=== PATIENT | female | born 1955 | race Hispanic/Latino ===

== ENCOUNTER 2018-01-09 17:03 | Inpatient (IN) | payer MEDICAID ==
[2018-01-09 18:11] LABS: BASO # 0.03 K/mm3 (0.0-2.0); BASO % 0.2 % (0.0-3.0); EOS # 0.1 (0.0-0.7); EOS % 0.4 % (1.5-5.0); GRAN # 9.95 (1.4-6.5); GRAN % 73.3 % (50.0-68.0); HEMOGLOBIN 13.7 g/dL (12.0-16.0); LYMPH # 2.2 (1.2-3.4); LYMPH % 16.3 % (22.0-35.0); MEAN CELL VOLUME 90.2 fl (80.0-105.0); MEAN CORPUSCULAR HEMOGLOBIN 29.7 pg (25.0-35.0); MEAN CORPUSCULAR HGB CONC 32.9 g/dl (31.0-37.0); MEAN PLATELET VOLUME 10.9 fl (7.0-11.0); MONO # 1.3 (0.1-0.6); MONO % 9.8 % (1.0-6.0); RBC 4.61 10^6/uL (3.5-6.1); RED CELL DISTRIBUTION WIDTH 14.5 % (11.5-14.5); WHITE BLOOD COUNT 13.6 10^3/ul (4.5-11.0)
[2018-01-09 18:23] LABS: INR 1.44; PARTIAL THROMBOPLASTIN TIME 24.1 Seconds (25.1-36.5); PROTHROMBIN TIME 16.5 SECONDS (9.4-12.5)
[2018-01-09 18:27] LABS: AMYLASE 67 U/L (35-125); CALCIUM 8.9 mg/dL (8.4-10.5); GFR NON-AFRICAN AMERICAN > 60; LIPASE 25 U/L (23-300)
--- NOTE | 2018-01-09 18:28 | ED PDOC ---
Arrival/HPI - General Chief Complaint: Abdominal Pain Time Seen by Provider: 01/09/18 17:20 Historian: Patient - History of Present Illness Narrative History of Present Illness (Text): 01/09/18 18:24 62yo female with pmhx of Diabetes, COPD, who present with complaint of diarrhea and left flank/LLQ abdominal pain x 5days. States the pain became worse 3days ago. Reports 5epsiodes of nonbloody diarrhea today. Denies nausea, vomiting, fever, chills, urinary symptoms, chest pain, sick contact, travel, any other complaint. Past Medical History - Provider Review Nursing Documentation Reviewed: Yes - Infectious Disease Hx of Infectious Diseases: None - Tetanus Immunization Tetanus Immunization: Unknown - Reproductive Menopause: Yes - Cardiac Hx DE: Yes - Pulmonary Hx Chronic Obstructive Pulmonary Disease (COPD): Yes - Neurological Hx Neurological Disorder: Yes Hx Paralysis: No Other/Comment: Neuropathy - HEENT Hx HEENT Disorder: No - Renal Hx Renal Disorder: No - Endocrine/Metabolic Hx Diabetes Mellitus Type 2: Yes - Hematological/Oncological Hx Blood Transfusions: No - Integumentary Hx Dermatological Disorder: No - Musculoskeletal/Rheumatological Hx Musculoskeletal Disorders: No - Gastrointestinal Hx Gastrointestinal Disorders: No - Genitourinary/Gynecological Hx Genitourinary Disorders: No - Psychiatric Hx Emotional Abuse: No Hx Physical Abuse: No Hx Substance Use: Yes (HEROIN/COCAINE(SNORTED) DENIES IVDA; XANAX) - Surgical History Hx Cardiac Catheterization: Yes - Anesthesia Hx Anesthesia: No Hx Anesthesia Reactions: No Hx Malignant Hyperthermia: No - Suicidal Assessment Feels Threatened In Home Enviroment: No Family/Social History - Physician Review Nursing Documentation Reviewed: Yes Family/Social History: Unknown Family HX Smoking Status: Former Smoker Hx Alcohol Use: No Hx Substance Use: Yes (HEROIN/COCAINE(SNORTED) DENIES IVDA; XANAX) Hx Substance Use Treatment: No Allergies/Home Meds Allergies/Adverse Reactions: Allergies iodine Allergy (Verified 01/09/18 17:15) ANAPHYLAXIS Penicillins Allergy (Verified 01/09/18 17:15) ANAPHYLAXIS Home Medications: Home Meds Medication Instructions Recorded Confirmed Tiotropium [place] Inhaler 1 inhaler INH DAILY 04/27/14 01/09/18 [Spiriva Inhalation Handihaler Device] Albuterol Sulfate [Ventolin Hfa] 1 puff IH BID PRN 09/15/17 01/09/18 Fluticasone/Salmeterol [Advair 1 each IH DAILY 09/15/17 01/09/18 250-50 Diskus] Gabapentin [Neurontin] 300 mg PO BID 01/09/18 01/09/18 Ibuprofen [Motrin Tab] 800 mg PO TID 01/09/18 01/09/18 Metformin HCl [Glucophage] 500 mg PO DAILY 01/09/18 01/09/18 Review of Systems - Physician Review All systems were reviewed & negative as marked: Yes - Review of Systems Constitutional: Normal Eyes: Normal ENT: Normal Respiratory: Normal Cardiovascular: Normal Gastrointestinal: Abdominal Pain, Diarrhea. absent: Constipation, Nausea, Vomiting, Hematochezia, Hematemesis Genitourinary Female: Normal Musculoskeletal: Normal Skin: Normal Neurological: Normal Endocrine: Normal Hemo/Lymphatic: Normal Psychiatric: Normal Physical Exam Vital Signs Reviewed: Yes Vital Signs Temp Pulse Resp BP Pulse Ox 01/09/18 19:04 98.6 F 80 18 139/70 95 01/09/18 17:15 97.3 F L 89 18 128/80 91 L Temperature: Afebrile Blood Pressure: Normal Pulse: Regular Respiratory Rate: Normal Appearance: Positive for: Well-Appearing, Non-Toxic, Comfortable Pain Distress: None Mental Status: Positive for: Alert and Oriented X 3 Finger Stick Blood Glucose: 126 - Systems Exam Head: Present: Atraumatic, Normocephalic Pupils: Present: PERRL Extroacular Muscles: Present: EOMI Conjunctiva: Present: Normal Mouth: Present: Moist Mucous Membranes Neck: Present: Normal Range of Motion Respiratory/Chest: Present: Clear to Auscultation, Good Air Exchange. No: Respiratory Distress, Accessory Muscle Use Cardiovascular: Present: Regular Rate and Rhythm, Normal S1, S2. No: Murmurs Abdomen: Present: Tenderness (LLQ tenderness), Other (Soft). No: Distention, Peritoneal Signs, Rebound, Guarding, McBurney's Point Tender, Rovsing's Sign Present Back: Present: Normal Inspection Upper Extremity: Present: Normal Inspection. No: Cyanosis, Edema Lower Extremity: Present: Normal Inspection. No: Edema Neurological: Present: GCS=15, CN II-XII Intact, Speech Normal Skin: Present: Warm, Dry, Normal Color. No: Rashes Psychiatric: Present: Alert, Oriented x 3, Normal Insight, Normal Concentration Medical Decision Making ED Course and Treatment: 01/09/18 19:47 62yo female in ED for LLQ and diarrhea x 5days. Labs ordered Abdominal/Pelvis CT I L NS, Pepcid ordered EKG EKG NSR @81bpm Lab was reviewed and leukocytosis was noted. Lactate was wnl Abdominal/Pelvic CT ABDOMEN and PELVIS: Intraperitoneal space: Unremarkable. No free air. No significant free fluid. Bones/joints: Degenerative changes in the spine. No acute fracture. No acute subluxation. Soft tissues: Very small fat containing umbilical hernia. Vasculature: Aortoiliac calcified plaque. No abdominal aortic aneurysm. Lymph nodes: A few sub-centimeter nonenlarged nonspecific mesenteric lymph nodes. IMPRESSION: Diffuse colitis. Infectious, inflammatory and ischemic etiologies for colitis should be considered. Gallstones Flagyl and azactem was ordered. Pt is allergic to penicillin Stool culture for C. diff ordered Pt will be admitted. Result and plan was DW the pt and she agreed. Case was DW Dr. Estrada and he accepted pt for admission. - Lab Interpretations Lab Results: 01/09/18 17:20 01/09/18 17:20 Lab Results 01/09/18 18:26: pO2 27 L, VBG pH 7.37, VBG pCO2 52.0, VBG HCO3 30.1 H, VBG Total CO2 31.7 H, VBG O2 Sat (Calc) 51.0, VBG Base Excess 3.6 H, VBG Potassium 4.2, Glucose 118 H, Lactate 1.1, FiO2 21.0, Sodium 136.0, Chloride 99.0, Venous Blood Potassium 4.2 01/09/18 17:28: POC Glucose (mg/dL) 123 H 01/09/18 17:20: Sodium 141, Potassium 4.0, Chloride 98, Carbon Dioxide 28, Anion Gap 18, BUN 16, Creatinine 0.7, Est GFR ( Amer) > 60, Est GFR (Non- Af Amer) > 60, Random Glucose 119 H, Calcium 8.9, Total Bilirubin 0.8, AST 27, ALT 20, Alkaline Phosphatase 68, Lactate Dehydrogenase 508, Total Creatine Kinase 111, Troponin I < 0.01, Total Protein 8.1, Albumin 4.0, Globulin 4.1, Albumin/Globulin Ratio 1.0 L, Amylase 67, Lipase 25 01/09/18 17:20: PT 16.5 H, INR 1.44, APTT 24.1 L 01/09/18 17:20: WBC 13.6 H D, RBC 4.61, Hgb 13.7, Hct 41.6, MCV 90.2, MCH 29.7, MCHC 32.9, RDW 14.5, Plt Count 240, MPV 10.9, Gran % 73.3 H, Lymph % (Auto) 16.3 L, Marion % (Auto) 9.8 H, Eos % (Auto) 0.4 L, Baso % (Auto) 0.2, Gran # 9.95 H, Lymph # (Auto) 2.2, Marion # (Auto) 1.3 H, Eos # (Auto) 0.1, Baso # (Auto) 0.03 - RAD Interpretation Radiology Orders: 01/09/18 17:22 ABD & PELVIS W/O PO OR IV CONT [CT] Stat 01/09/18 19:34 CHEST PORTABLE [RAD] Stat - Medication Orders Current Medication Orders: Metronidazole (Flagyl) 500 mg in 100 mls @ 100 mls/hr IVPB STAT STA PRN Reason: Protocol Stop: 01/09/18 20:24 Aztreonam (Azactam 1 Gm) 100 mls @ 100 mls/hr IVPB STAT STA PRN Reason: Protocol Stop: 01/09/18 20:32 Discontinued Medications Famotidine (Pepcid) 20 mg IVP STAT STA Stop: 01/09/18 17:21 Last Admin: 01/09/18 18:01 Dose: 20 mg IVP Administration Document 01/09/18 18:01 EWO (Rec: 01/09/18 18:02 [id number]) Charges for Administration # of IVP Administrations 1 Morphine Sulfate (Morphine) 4 mg IVP STAT STA Stop: 01/09/18 19:26 Disposition/Present on Arrival - Present on Arrival Any Indicators Present on Arrival: No History of DVT/PE: No History of Uncontrolled Diabetes: No Urinary Catheter: No History of Decub. Ulcer: No History Surgical Site Infection Following: None - Disposition Have Diagnosis and Disposition been Completed?: Yes Diagnosis: Colitis, Diarrhea Disposition: HOSPITALIZED Disposition Time: 19:35 Patient Plan: Admission Patient Problems: Current Active Problems Problem Status Onset Colitis Acute Diarrhea Acute Condition: STABLE Referrals: Gaurav Tobias MD [Primary Care Provider] - Follow up with primary Forms: [employer] (Macedonian)
[2018-01-09 18:38] LABS: TROPONIN I < 0.01 ng/mL
[2018-01-09 18:45] LABS: ALT/SGPT 20 U/L (7-56); AST/SGOT 27 U/L (14-36); BLOOD UREA NITROGEN 16 mg/dL (7-21)
[2018-01-09 18:53] LABS: VENOUS BLOOD GAS BASE EXCESS 3.6 mmol/L (0.0-2.0); VENOUS BLOOD GAS PO2 27 mm/Hg (30-55); VENOUS BLOOD PH 7.37 (7.32-7.43)
[2018-01-09] MEDS ORDERED: Morphine 4 mg/ml ISec IVP STA (19:25)
[2018-01-09] MEDS ORDERED: metroNIDAZOLE IV 500 mg/100 ml 500 MG/100 ML BAG IVPB STA (19:25)
[2018-01-09] MEDS ORDERED: Aztreonam 1 Gm in NS 100mL 100 ML IVPB STA (19:33)
[2018-01-09 20:18] LABS: URINE BILIRUBIN SMALL (NEGATIVE); URINE BLOOD TRACE-INTACT (NEGATIVE); URINE GLUCOSE (UA) NEGATIVE (NEGATIVE); URINE LEUKOCYTE ESTERASE NEGATIVE Leu/uL (NEGATIVE); URINE PROTEIN 30 mg/dL (<30 mg/dL); URINE UROBILINOGEN 0.2 E.U./dL (<1 E.U./dL)
[2018-01-09 20:29] LABS: URINE APPEARANCE CLEAR (CLEAR); URINE COLOR YELLOW (YELLOW)
[2018-01-09] MEDS ORDERED: Morphine 2 mg/ml ISec IVP PRN (20:58)
[2018-01-09] MEDS ORDERED: Sodium Chloride 0.9% 1,000 ML IV SCH (21:00)
[2018-01-09] MEDS ORDERED: Albuterol 0.083% Inhal Sol (2.5 mg/3 mL) UD IH PRN (21:00)
[2018-01-09] MEDS ORDERED: Dextrose 50% SYRINGE Inj (50 ml) IV PRN (21:03)
[2018-01-09] MEDS: Insulin Reg-LOW-Coverage SC SCH (21:16)
[2018-01-09] MEDS: Sodium Chloride 0.9% 1,000 ML IV SCH (21:21)
--- NOTE | 2018-01-09 21:27 | CP.PCM.HP ---
Addendum entered and electronically signed by Alex Renner DO 01/10/18 04:55 : HPI: Patient is a 62 yo female with PMH of COPD, DM, HTN, Methadone ( maintenance) neuropathy presents to ED for evaluation of abdominal pain. Patient reports her abdominal pain began on 01/05 and progressively became worse until she had to come to hospital. Patient reports no appetite secondary to abdominal pain and multiple episodes of diarrhea (5-6/day) described as light brown, loose, no melena, or blood noted. Patient also reports weakness and states it is because she is unable to eat and continues to have diarrhea. Patient states the pain is located in the left upper and lower quadrant, non- radiating, constant in nature and worsened with eating. Patient states the pain level is 8/10 currently. Patient states she had 1 prior episode of similar symptoms in 2013 after a dentist prescribed her antibiotics. Patient states she came here in the past and was treated for C. diff colitis. Patient underwent colonoscopy in (2013 or 2014) with normal results. Patient states she has been feeling lightheaded but denies fevers or chills. Original Note: <Alex Renner - Last Filed: 01/09/18 21:39> History of Present Illness - History of Present Illness History of Present Illness: PGY-1 History and Physical for Dr. Estrada's service CC: stomach pain + bad diarrhea Patient is a 62 yo female with PMH of COPD, DM, HTN, Methadone ( maintenance) neuropathy presents to ED for evaluation of abdominal pain. Patient reports her abdominal pain began on 01/05 and progressively became worse until she had to come to hospital. Patient reports no appetite secondary to abdominal pain and multiple episodes of diarrhea (5-6/day) described as light brown, loose, no melena, or blood noted. Patient also reports weakness and states it is becaPatient states the pain is located in the left upper and lower quadrant, non-radiating, constant in nature and worsened with eating. Patient states the pain level is 8/10 currently. Patient states she had 1 prior episode of similar symptoms in 2013 after a dentist prescribed her antibiotics. Patient states she came here in the past and was treated for C. diff colitis. Patient underwent colonoscopy in (2013 or 2014) with normal results. Patient states she has been feeling lightheaded but denies fevers or chills. PMH: Neuropathy, COPD, DM, HTN, Methadone (maintenance) PSH: Denies FH: Mom (Heart Problems- DM & HF) Meds: Allergies: PCN (diarrhea) & Iodine (hives, anaphylaxis) Social: Denies alcohol, tobacco, or drug use (previous IVDA) PMD: Dr. Tobias Code: Full Code Review of Systems: Pertinent Positives: abdominal pain, diarrhea, lightheadedness, weakness Pertinent Negatives: hematochezia, melena, fevers, chills, chest pain, sob, n/v , constipation, palpitations, dysuria, dizziness Present on Admission - Present on Admission Any Indicators Present on Admission: No Review of Systems - Constitutional Constitutional: absent: Chills, Fever, Headache, Weight Loss - EENT Eyes: absent: Blurred Vision, Change in Vision - Cardiovascular Cardiovascular: absent: Chest Pain, Diaphoresis, Dyspnea - Respiratory Respiratory: absent: Dyspnea, Hemoptysis - Gastrointestinal Gastrointestinal: Abdominal Pain, Bloating, Diarrhea. absent: Constipation, Hematochezia, Melena, Nausea, Vomiting - Genitourinary Genitourinary: absent: Change in Urinary Stream, Difficulty Urinating, Dysuria, Flank Pain, Hematuria - Musculoskeletal Musculoskeletal: absent: Arthralgias, Back Pain, Numbness, Tingling - Neurological Neurological: Weakness. absent: Dizziness, Headaches Past Patient History - Infectious Disease Hx of Infectious Diseases: None - Tetanus Immunizations Tetanus Immunization: Unknown - Past Social History Smoking Status: Former Smoker - CARDIAC Hx Heart Attack: Yes - PULMONARY Hx Chronic Obstructive Pulmonary Disease (COPD): Yes - NEUROLOGICAL Hx Neurological Disorder: Yes Hx Paralysis: No Other/Comment: Neuropathy - HEENT Hx HEENT Problems: No - RENAL Hx Chronic Kidney Disease: No - ENDOCRINE/METABOLIC Hx Diabetes Mellitus Type 2: Yes - HEMATOLOGICAL/ONCOLOGICAL Hx Blood Transfusions: No - INTEGUMENTARY Hx Dermatological Problems: No - MUSCULOSKELETAL/RHEUMATOLOGICAL Hx Musculoskeletal Disorders: No - GASTROINTESTINAL Hx Gastrointestinal Disorders: No - GENITOURINARY/GYNECOLOGICAL Hx Genitourinary Disorders: No - PSYCHIATRIC Hx Emotional Abuse: No Hx Physical Abuse: No Hx Substance Use: Yes (HEROIN/COCAINE(SNORTED) DENIES IVDA; XANAX) - SURGICAL HISTORY Hx Cardiac Catheterization: Yes - ANESTHESIA Hx Anesthesia: No Hx Anesthesia Reactions: No Hx Malignant Hyperthermia: No Meds Allergies/Adverse Reactions: Allergies Allergy/AdvReac Type Severity Reaction Status Date / Time iodine Allergy ANAPHYLAXIS Verified 01/09/18 17:15 Penicillins Allergy ANAPHYLAXIS Verified 01/09/18 17:15 Physical Exam - Constitutional Appears: Non-toxic, No Acute Distress - Head Exam Head Exam: NORMAL INSPECTION, NORMOCEPHALIC - Eye Exam Eye Exam: EOMI, Normal appearance. absent: Nystagmus, Scleral icterus - ENT Exam ENT Exam: Mucous Membranes Moist, Normal Exam - Respiratory Exam Respiratory Exam: Clear to Auscultation Bilateral, NORMAL BREATHING PATTERN. absent: Rales, Rhonchi, Wheezes - Cardiovascular Exam Cardiovascular Exam: REGULAR RHYTHM, +S1, +S2. absent: Tachycardia - GI/Abdominal Exam GI & Abdominal Exam: Normal Bowel Sounds, Soft, Tenderness. absent: Distended, Firm, Guarding, Rigid - Extremities Exam Extremities exam: Positive for: normal inspection. Negative for: calf tenderness, pedal edema - Back Exam Back exam: NORMAL INSPECTION. absent: CVA tenderness (L), CVA tenderness (R) - Neurological Exam Neurological exam: Alert, Oriented x3 - Psychiatric Exam Psychiatric exam: Normal Affect, Normal Mood - Skin Skin Exam: Intact, Normal Color Results - Vital Signs Recent Vital Signs: Last Vital Signs Temp 98.6 F 01/09/18 19:04 Pulse 77 01/09/18 21:00 Resp 18 01/09/18 21:00 BP 126/56 L 01/09/18 21:00 Pulse Ox 96 01/09/18 21:00 - Labs Result Diagrams: 01/09/18 17:20 01/09/18 17:20 Labs: Laboratory Results - last 24 hr 01/09/18 20:04 Urine Color Yellow Urine Appearance Clear Urine pH 6.0 Ur Specific Wyatt 1.025 Urine Protein 30 H Urine Glucose (UA) Negative Urine Ketones 40 H Urine Blood Trace-intact H Urine Nitrate Negative Urine Bilirubin Small H Urine Urobilinogen 0.2 Ur Leukocyte Esterase Negative Assessment & Plan - Assessment and Plan (Free Text) Assessment: Colitis 01/09/2018 CT abdomen pelvis w/o contrast pending- prelim read shows colitis ID Consult: Dr. Radford- recommendations appreciated WBC- 13.6; Flagyl 500mg IVPB q8, Aztreonam 1gm IVPB q8; Morphine 2mg IVP q4h prn; Zofran 4mg IVP q4h prn; Colace 100mg po daily Stool Electrolytes pending- to calculate stool gap - determine etiology Blood cultures pending, stool cdiff pending, stool cultures pending COPD Spirivia 18mcg INH daily Brovana 15mcg IH 0800 Albuterol 0.083% 1mg IH BID prn HTN Metoprolol 25mg po bid Neuropathy Gabapentin 300mg po bid DM ISS-low dose ACHS; Hypogylcemic protocol Prophylaxis DVT ppx: Lovenox 40mg sc daily GI ppx: Famotidine 40mg po hs <Chris Estrada - Last Filed: 01/10/18 06:52> Results - Vital Signs Recent Vital Signs: Last Vital Signs Temp 98.9 F 01/10/18 00:44 Pulse 78 01/10/18 00:44 Resp 18 01/10/18 00:44 BP 134/80 01/10/18 00:44 Pulse Ox 96 01/09/18 21:00 - Labs Result Diagrams: 01/09/18 17:20 01/09/18 17:20 Labs: Laboratory Results - last 24 hr 01/09/18 01/09/18 01/10/18 20:04 21:14 02:57 POC Glucose (mg/dL) 78 116 H Urine Color Yellow Urine Appearance Clear Urine pH 6.0 Ur Specific [place]att 1.025 Urine Protein 30 H Urine Glucose (UA) Negative Urine Ketones 40 H Urine Blood Trace-intact H Urine Nitrate Negative Urine Bilirubin Small H Urine Urobilinogen 0.2 Ur Leukocyte Esterase Negative Urine RBC 2 - 5 Urine WBC 0 - 2 Ur Epithelial Cells 1 - 3 Other Crystals None Urine Bacteria Mod Attending/Attestation - Attestation I have personally seen and examined this patient.: Yes I have fully participated in the care of the patient.: Yes I have reviewed all pertinent clinical information: Yes Notes (Text): 01/10/18 06:48 Patient was seen when she was in bed 575-01. Feels better now, has no acute symptoms now. Medical record was reviewed. Agree with history , physical examination, assessment and plan. This 62 year old white woman with DM,HTN,COPD,neuropathy, methadone maintainance ,hepatitis C,negative cardiac catheterization comes with abdominal pain, diarrhoea, colitis will receive IV azactam, flagyl , hydration.
[2018-01-09 22:02] LABS: URINE BACTERIA MOD (NEG); URINE WBC 0 - 2 /hpf (0-6)
[2018-01-10 01:02] VITALS: BMI 30.2
[2018-01-10] MEDS: metroNIDAZOLE IV 500 mg/100 ml 500 MG/100 ML BAG IVPB SCH ×4 (01:28→21:55)
[2018-01-10] MEDS: Insulin Reg-LOW-Coverage SC SCH ×4 (03:51→21:55)
[2018-01-10] MEDS ORDERED: Aztreonam 1 Gm in NS 100mL 100 ML IVPB SCH (06:00)
--- NOTE | 2018-01-10 06:03 | CT ---
Date of service: 01/09/2018 PROCEDURE: CT Abdomen and Pelvis without intravenous contrast HISTORY: left sided pain COMPARISON: 2013 TECHNIQUE: Technique. Contrast dose: Radiation dose: Total exam DLP = mGy-cm. This CT exam was performed using one or more of the following dose reduction techniques: Automated exposure control, adjustment of the mA and/or kV according to patient size, and/or use of iterative reconstruction technique. FINDINGS: LOWER THORAX: Unremarkable. LIVER: Unremarkable. No gross lesion or ductal dilatation. GALLBLADDER AND BILE DUCTS: Gallstone. PANCREAS: Unremarkable. No gross lesion or ductal dilatation. SPLEEN: Unremarkable. ADRENALS: Unremarkable. No mass. KIDNEYS AND URETERS: Unremarkable. No hydronephrosis. No solid mass. VASCULATURE: Unremarkable. No aortic aneurysm. BOWEL: Diffuse left-sided colonic thickening with minimal pericolonic fat infiltration compatible with colitis. APPENDIX: Unremarkable. Normal appendix. PERITONEUM: Unremarkable. No free fluid. No free air. LYMPH NODES: Unremarkable. No enlarged lymph nodes. BLADDER: Unremarkable. REPRODUCTIVE: Unremarkable. BONES: No acute fracture. OTHER FINDINGS: None. IMPRESSION: Diffuse left-sided colonic thickening with minimal pericolonic fat infiltration compatible with colitis. Gallstones.
[2018-01-10 07:04] LABS: BASO # 0.02 K/mm3 (0.0-2.0); BASO % 0.2 % (0.0-3.0); EOS # 0.1 (0.0-0.7); EOS % 0.5 % (1.5-5.0); GRAN # 9.18 (1.4-6.5); GRAN % 73.1 % (50.0-68.0); HEMOGLOBIN 13.5 g/dL (12.0-16.0); LYMPH # 2.1 (1.2-3.4); LYMPH % 16.4 % (22.0-35.0); MEAN CELL VOLUME 90.7 fl (80.0-105.0); MEAN CORPUSCULAR HEMOGLOBIN 29.2 pg (25.0-35.0); MEAN CORPUSCULAR HGB CONC 32.1 g/dl (31.0-37.0); MONO # 1.2 (0.1-0.6); MONO % 9.8 % (1.0-6.0); RBC 4.63 10^6/uL (3.5-6.1); RED CELL DISTRIBUTION WIDTH 14.7 % (11.5-14.5); WHITE BLOOD COUNT 12.6 10^3/ul (4.5-11.0)
[2018-01-10] MEDS: Budesonide 0.5 mg/2 ml Inhal Susp UD IH SCH (07:13)
[2018-01-10 07:24] LABS: ALB/GLOB RATIO 0.9 (1.1-1.8); ALBUMIN 3.5 g/dL (3.0-4.8); ALT/SGPT 21 U/L (7-56); AST/SGOT 21 U/L (14-36); BLOOD UREA NITROGEN 11 mg/dL (7-21); CALCIUM 8.6 mg/dL (8.4-10.5); GFR NON-AFRICAN AMERICAN > 60
[2018-01-10] MEDS ORDERED: Arformoterol 15 mcg/2 ml Inh Sol IH SCH (08:00)
[2018-01-10] MEDS ORDERED: Albuterol 0.083% Inhal Sol (2.5 mg/3 mL) UD IH PRN (08:04)
--- NOTE | 2018-01-10 08:56 | CP.PCM.CON ---
<Naomy Joya - Last Filed: 01/10/18 15:41> History of Present Illness - History of Present Illness History of Present Illness: GI Fellow PGY5 Consult Note This is a 62yF with pmhx of COPD, DM, HTN, Methadone, neuropathy, Cdiff colitis , HCV treated with SVR, [place] [facility] [place] abdominal pain and diarrhea for 5 days. Patient reports her abdominal pain began last week and progressively became worse until she had to come to hospital. Patient reports no appetite secondary to abdominal pain and multiple episodes of diarrhea 5-6 xday described as brown, loose, foul odor, no melena, or blood noted. Pain is located in the left upper and lower quadrant, non-radiating, constant in nature and worsened with eating. Patient states the pain level is better with morphine. She denies any unintentional weight loss,no sick contacts, no travel and no recent abx use. She has a hx of Cdiff colitis in 2013 after a dentist prescribed her antibiotics amoxicillin and she was treated with po vancomycin. She had a colonoscopy in [address] Wayne and found to have colitis on path results but negative for pseudomembranous colitis or ischemic colitis. Pt reports being treated for HCV with Zepatir by Dr. Mendez in [place], [facility] and with viral clearance in 04/2017. ROS: A 12pt ROS was negative except for as stated above. PMH: As stated above PSH: Denies FH: Neg for colon or liver cancer Social: Denies alcohol, tobacco, or drug use (previous IVDA) Past Patient History - Infectious Disease Hx of Infectious Diseases: None - Tetanus Immunizations Tetanus Immunization: Unknown - Past Social History Smoking Status: Former Smoker - CARDIAC Hx Hypertension: Yes - PULMONARY Hx Chronic Obstructive Pulmonary Disease (COPD): Yes - NEUROLOGICAL Hx Neurological Disorder: Yes Hx Transient Ischemic Attacks (TIA): Yes Other/Comment: Neuropathy - HEENT Hx HEENT Problems: No - RENAL Hx Chronic Kidney Disease: No - ENDOCRINE/METABOLIC Hx Diabetes Mellitus Type 2: Yes - HEMATOLOGICAL/ONCOLOGICAL Hx Blood Disorders: Yes Hx Hepatitis C: Yes - INTEGUMENTARY Hx Dermatological Problems: No - MUSCULOSKELETAL/RHEUMATOLOGICAL Hx Musculoskeletal Disorders: No Hx Falls: No Hx Unsteady Gait: Yes - GASTROINTESTINAL Hx Gastrointestinal Disorders: No - GENITOURINARY/GYNECOLOGICAL Hx Genitourinary Disorders: No - PSYCHIATRIC Hx Emotional Abuse: No Hx Physical Abuse: No Hx Substance Use: No (denies) - SURGICAL HISTORY Hx Surgeries: No (Patient denies SX) Hx Cardiac Catheterization: Yes - ANESTHESIA Hx Anesthesia: No Hx Anesthesia Reactions: No Hx Malignant Hyperthermia: No Meds Allergies/Adverse Reactions: Allergies Allergy/AdvReac Type Severity Reaction Status Date / Time iodine Allergy ANAPHYLAXIS Verified 01/09/18 17:15 Penicillins Allergy ANAPHYLAXIS Verified 01/09/18 17:15 - Medications Medications: Current Medications Albuterol Sulfate (Albuterol 0.083% Inhal Jesenia (2.5 Mg/3 Ml) Ud) 1 mg IH BIDRESP PRN PRN Reason: Wheezing Arformoterol Tartrate (Brovana) 15 mcg IH 0800 [facility] Aspirin (Ecotrin) 81 mg PO DAILY [facility] Budesonide (Pulmicort Respules) 0.5 mg IH 0800 [facility] Last Admin: 01/10/18 07:13 Dose: 0.5 mg Dextrose (Dextrose 50% Inj) 0 ml IV STAT PRN; Protocol PRN Reason: Hypoglycemia Protocol Enoxaparin Sodium (Lovenox) 40 mg SC DAILY [facility] PRN Reason: Protocol Famotidine (Pepcid) 40 mg PO HS [facility] Last Admin: 01/09/18 23:37 Dose: 40 mg Gabapentin (Neurontin) 300 mg PO BID [facility] PRN Reason: Protocol Metronidazole (Flagyl) 500 mg in 100 mls @ 100 mls/hr IVPB Q8 [facility] PRN Reason: Protocol Last Admin: 01/10/18 06:19 Dose: 100 mls/hr Dextrose (Dextrose 5% In Water 1000 Ml) 1,000 mls @ 0 mls/hr IV .Q0M PRN; Protocol; Per Protocol PRN Reason: Hypoglycemia Protocol Sodium Chloride (Sodium Chloride 0.9%) 1,000 mls @ 100 mls/hr IV .Q10H [facility] Last Admin: 01/09/18 21:21 Dose: 100 mls/hr Insulin Human Regular (Humulin R Low) 0 units SC Q6H [facility] PRN Reason: Protocol Last Admin: 01/10/18 08:19 Dose: Not Given Metoprolol Tartrate (Lopressor) 25 mg PO BID [facility] Morphine Sulfate (Morphine) 2 mg IVP Q4H PRN PRN Reason: Pain, severe (8-10) Last Admin: 01/10/18 06:20 Dose: 2 mg Ondansetron HCl (Zofran Inj) 4 mg IVP Q4H PRN PRN Reason: Nausea/Vomiting Last Admin: 01/09/18 21:22 Dose: 4 mg Tiotropium [place] (Spiriva) 18 mcg INH DAILY [facility] Physical Exam - Constitutional Appears: Non-toxic, No Acute Distress - Head Exam Head Exam: ATRAUMATIC, NORMAL INSPECTION, NORMOCEPHALIC - Eye Exam Eye Exam: EOMI, Normal appearance, PERRL Pupil Exam: PERRL - ENT Exam ENT Exam: Mucous Membranes Moist - Respiratory Exam Respiratory Exam: Clear to Auscultation Bilateral, NORMAL BREATHING PATTERN - Cardiovascular Exam Cardiovascular Exam: RRR, +S1, +S2 - GI/Abdominal Exam GI & Abdominal Exam: Normal Bowel Sounds, Soft, Tenderness. absent: Distended, Guarding, Organomegaly - Rectal Exam Rectal Exam: Deferred - Extremities Exam Extremities exam: Positive for: full ROM, normal inspection - Back Exam Back exam: NORMAL INSPECTION - Neurological Exam Neurological exam: Alert, Oriented x3 - Psychiatric Exam Psychiatric exam: Normal Affect, Normal Mood - Skin Skin Exam: Dry, Intact, Normal Color, Warm Results - Vital Signs Recent Vital Signs: Last Vital Signs Temp 98.9 F 01/10/18 00:44 Pulse 74 01/10/18 07:52 Resp 18 01/10/18 00:44 BP 134/80 01/10/18 00:44 Pulse Ox 96 01/09/18 21:00 - Labs Result Diagrams: 01/10/18 06:30 01/10/18 06:30 Labs: Laboratory Results - last 24 hr 01/09/18 01/09/18 01/10/18 20:04 21:14 02:57 WBC RBC Hgb Hct MCV MCH MCHC RDW Plt Count MPV Gran % Lymph % (Auto) [place] % (Auto) Eos % (Auto) Baso % (Auto) Gran # Lymph # (Auto) [place] # (Auto) Eos # (Auto) Baso # (Auto) Sodium Potassium Chloride Carbon Dioxide Anion Gap BUN Creatinine Est GFR ( Amer) Est GFR (Non-Af Amer) POC Glucose (mg/dL) 78 116 H Random Glucose Calcium Phosphorus Magnesium Total Bilirubin AST ALT Alkaline Phosphatase Total Protein Albumin Globulin Albumin/Globulin Ratio Urine Color Yellow Urine Appearance Clear Urine pH 6.0 Ur Specific [place] 1.025 Urine Protein 30 H Urine Glucose (UA) Negative Urine Ketones 40 H Urine Blood Trace-intact H Urine Nitrate Negative Urine Bilirubin Small H Urine Urobilinogen 0.2 Ur Leukocyte Esterase Negative Urine RBC 2 - 5 Urine WBC 0 - 2 Ur Epithelial Cells 1 - 3 Other Crystals None Urine Bacteria Mod 01/10/18 01/10/18 06:30 06:30 WBC 12.6 H RBC 4.63 Hgb 13.5 Hct 42.0 MCV 90.7 MCH 29.2 MCHC 32.1 RDW 14.7 H Plt Count 232 MPV 11.0 Gran % 73.1 H Lymph % (Auto) 16.4 L [place] % (Auto) 9.8 H Eos % (Auto) 0.5 L Baso % (Auto) 0.2 Gran # 9.18 H Lymph # (Auto) 2.1 [place] # (Auto) 1.2 H Eos # (Auto) 0.1 Baso # (Auto) 0.02 Sodium 141 Potassium 4.1 Chloride 101 Carbon Dioxide 29 Anion Gap 15 BUN 11 Creatinine 0.6 L Est GFR ( Amer) > 60 Est GFR (Non-Af Amer) > 60 POC Glucose (mg/dL) Random Glucose 127 H Calcium 8.6 Phosphorus 3.7 Magnesium 2.0 Total Bilirubin 0.5 AST 21 ALT 21 Alkaline Phosphatase 65 Total Protein 7.3 Albumin 3.5 Globulin 3.7 Albumin/Globulin Ratio 0.9 L Urine Color Urine Appearance Urine pH Ur Specific [place] Urine Protein Urine Glucose (UA) Urine Ketones Urine Blood Urine Nitrate Urine Bilirubin Urine Urobilinogen Ur Leukocyte Esterase Urine RBC Urine WBC Ur Epithelial Cells Other Crystals Urine Bacteria Assessment & Plan - Assessment and Plan (Free Text) Assessment: This is a 62yF presenting with complaints of abdominal pain and diarrhea for 5days. 1. Abdominal pain 2. Diarrhea 3. Colitis 4. Hx of HCV 5. Hx of Cdiff 6. UTI Plan: -Continue supportive care with pain control and anti-emetics -IVF hydration -CT imaging reviewed with no contrast, left sided thickening noted -IV abx with Flagyl and Rocephin for colitis and possible UTI -Stool studies ordered to r/o Cdiff -Clear liquid diet -Pt treated with Zepatir for HCV, recommend close followup with reel winder and ID doctor -Discussed with pt need for outpt followup and colonoscopy 6-8 weeks after resolution of current symptoms -Will continue to follow pt closely <Alban Burns - Last Filed: 01/11/18 09:28> Meds - Medications Medications: Current Medications Albuterol Sulfate (Albuterol 0.083% Inhal Jesenia (2.5 Mg/3 Ml) Ud) 1 mg IH BIDRESP PRN PRN Reason: Wheezing Arformoterol Tartrate (Brovana) 15 mcg IH 0800 [facility] Last Admin: 01/11/18 07:23 Dose: Not Given Aspirin (Ecotrin) 81 mg PO DAILY [facility] Last Admin: 01/10/18 09:34 Dose: 81 mg Budesonide (Pulmicort Respules) 0.5 mg IH 0800 [facility] Last Admin: 01/11/18 07:23 Dose: Not Given Dextrose (Dextrose 50% Inj) 0 ml IV STAT PRN; Protocol PRN Reason: Hypoglycemia Protocol Enoxaparin Sodium (Lovenox) 40 mg SC DAILY [facility] PRN Reason: Protocol Last Admin: 01/10/18 09:33 Dose: 40 mg Famotidine (Pepcid) 40 mg PO HS [facility] Last Admin: 01/10/18 21:55 Dose: 40 mg Gabapentin (Neurontin) 300 mg PO BID [facility] PRN Reason: Protocol Last Admin: 01/10/18 17:02 Dose: 300 mg Metronidazole (Flagyl) 500 mg in 100 mls @ 100 mls/hr IVPB Q8 [facility] PRN Reason: Protocol Last Admin: 01/11/18 05:11 Dose: 100 mls/hr Dextrose (Dextrose 5% In Water 1000 Ml) 1,000 mls @ 0 mls/hr IV .Q0M PRN; Protocol; Per Protocol PRN Reason: Hypoglycemia Protocol Sodium Chloride (Sodium Chloride 0.9%) 1,000 mls @ 100 mls/hr IV .Q10H [facility] Last Admin: 01/10/18 21:57 Dose: 100 mls/hr Aztreonam (Azactam 1 Gm) 100 mls @ 100 mls/hr IVPB Q8 [facility] PRN Reason: Protocol Last Admin: 01/11/18 05:09 Dose: 100 mls/hr Insulin Human Regular (Humulin R Low) 0 units SC ACHS [facility] PRN Reason: Protocol Methadone HCl 60 mg/ Methadone (HCl 5 mg) 65 mg PO DAILY [facility] Last Admin: 01/10/18 09:34 Dose: 65 mg Metoprolol Tartrate (Lopressor) 25 mg PO BID [facility] Last Admin: 01/10/18 09:34 Dose: Not Given Morphine Sulfate (Morphine) 2 mg IVP Q6H PRN PRN Reason: Pain, severe (8-10) Last Admin: 01/11/18 01:56 Dose: 2 mg Ondansetron HCl (Zofran Inj) 4 mg IVP Q4H PRN PRN Reason: Nausea/Vomiting Last Admin: 01/09/18 21:22 Dose: 4 mg Tiotropium [place] (Spiriva) 18 mcg INH DAILY [facility] Last Admin: 01/10/18 09:34 Dose: 18 mcg Vancomycin HCl (Vancocin 25 Mg/Ml (Oral Use)) 125 mg PO QID [facility] PRN Reason: Protocol Results - Vital Signs Recent Vital Signs: Last Vital Signs Temp 98.6 F 01/10/18 22:10 Pulse 78 01/10/18 22:10 Resp 20 01/10/18 22:10 BP 105/59 L 01/10/18 22:10 Pulse Ox 93 L 01/10/18 22:10 - Labs Result Diagrams: 01/11/18 06:00 01/11/18 06:00 Labs: Laboratory Results - last 24 hr 01/10/18 01/10/18 01/10/18 11:01 16:12 21:26 WBC RBC Hgb Hct MCV MCH MCHC RDW Plt Count MPV Gran % Lymph % (Auto) [place] % (Auto) Eos % (Auto) Baso % (Auto) Gran # Lymph # (Auto) [place] # (Auto) Eos # (Auto) Baso # (Auto) Sodium Potassium Chloride Carbon Dioxide Anion Gap BUN Creatinine Est GFR ( Amer) Est GFR (Non-Af Amer) POC Glucose (mg/dL) 151 H 90 118 H Random Glucose Calcium Phosphorus Magnesium Total Bilirubin AST ALT Alkaline Phosphatase Total Protein Albumin Globulin Albumin/Globulin Ratio 01/11/18 01/11/18 01/11/18 03:21 06:00 06:00 WBC 8.5 D RBC 3.96 Hgb 11.5 L D Hct 35.7 L MCV 90.2 MCH 29.0 MCHC 32.2 RDW 14.5 Plt Count 193 MPV 10.9 Gran % 68.2 H Lymph % (Auto) 19.5 L [place] % (Auto) 11.6 H Eos % (Auto) 0.6 L Baso % (Auto) 0.1 Gran # 5.81 Lymph # (Auto) 1.7 [place] # (Auto) 1.0 H Eos # (Auto) 0.1 Baso # (Auto) 0.01 Sodium 139 Potassium 3.7 Chloride 104 Carbon Dioxide 27 Anion Gap 12 BUN 8 Creatinine 0.5 L Est GFR ( Amer) > 60 Est GFR (Non-Af Amer) > 60 POC Glucose (mg/dL) 141 H Random Glucose 120 H Calcium 7.9 L Phosphorus 2.8 Magnesium 1.8 Total Bilirubin 0.2 AST 20 ALT 22 Alkaline Phosphatase 51 Total Protein 6.0 Albumin 2.9 L Globulin 3.1 Albumin/Globulin Ratio 0.9 L Attending/Attestation - Attestation I have personally seen and examined this patient.: Yes I have fully participated in the care of the patient.: Yes I have reviewed all pertinent clinical information: Yes Notes (Text): 01/11/18 09:20 This is a 62 year old F presenting with complaints of abdominal pain and diarrhea for [address] revealing left sided colitis. Diarrhea watery non bloody and non mucusy. History of C idd colitis in 2015 with colonoscopy then showing no abnormalities. No antibiotics exposure in last 6 months. Has history of DM neuropathy and DM with two new medications started in last month as per patient. Stool infectious studies are still pending. Will start empiric vancomycin po qid with IV flagyl. Full liquid diet
[2018-01-10] MEDS: Enoxaparin 40 mg Syringe SC SCH (09:33)
[2018-01-10] MEDS: Tiotropium 18 mcg Cap For Inhalation INH SCH (09:34)
--- NOTE | 2018-01-10 09:40 | RAD ---
Date of service: 01/09/2018 HISTORY: admission COMPARISON: 07/04/2016 FINDINGS: LUNGS: Multiple small granulomas. The lungs are otherwise clear PLEURA: No significant pleural effusion identified, no pneumothorax apparent. CARDIOVASCULAR: Normal. OSSEOUS STRUCTURES: No significant abnormalities. VISUALIZED UPPER ABDOMEN: Normal. OTHER FINDINGS: None. IMPRESSION: No active disease.
--- NOTE | 2018-01-10 11:24 | CARD ---
APPROVED REPORT Date of service: 01/09/2018 EKG Measurement Heart [id number] <Conclusion> Normal sinus rhythm Normal ECG
[2018-01-10] MEDS: Aztreonam 1 Gm in NS 100mL 100 ML IVPB SCH ×2 (13:21→21:55)
[2018-01-10] MEDS: Morphine 2 mg/ml ISec IVP PRN (13:30)
--- NOTE | 2018-01-10 18:27 | CP.PCM.PN ---
<Arnold Aguirre - Last Filed: 01/10/18 19:53> Subjective - Date & Time of Evaluation Date of Evaluation: 01/10/18 Time of Evaluation: 09:30 - Subjective Subjective: Arnold Aguirre IM resident, Medicine progress note for Dr Ramirez. Pt seen and examined this morning. Pt reports diarrhea and abdominal pain. Objective - Vital Signs/Intake and Output Vital Signs (last 24 hours): Temp Pulse Resp BP Pulse Ox 99 F 72 20 89/62 L 90 L 01/10/18 14:00 01/10/18 16:49 01/10/18 14:00 01/10/18 16:49 01/10/18 14:00 Intake and Output: 01/10/18 01/10/18 06:59 18:59 Intake Total 480 Output Total 1 Balance -1 480 - Medications Medications: Current Medications Albuterol Sulfate (Albuterol 0.083% Inhal Jesenia (2.5 Mg/3 Ml) Ud) 1 mg IH BIDRESP PRN PRN Reason: Wheezing Arformoterol Tartrate (Brovana) 15 mcg IH 0800 [facility] Aspirin (Ecotrin) 81 mg PO DAILY [facility] Last Admin: 01/10/18 09:34 Dose: 81 mg Budesonide (Pulmicort Respules) 0.5 mg IH 0800 [facility] Last Admin: 01/10/18 07:13 Dose: 0.5 mg Dextrose (Dextrose 50% Inj) 0 ml IV STAT PRN; Protocol PRN Reason: Hypoglycemia Protocol Enoxaparin Sodium (Lovenox) 40 mg SC DAILY [facility] PRN Reason: Protocol Last Admin: 01/10/18 09:33 Dose: 40 mg Famotidine (Pepcid) 40 mg PO HS [facility] Last Admin: 01/09/18 23:37 Dose: 40 mg Gabapentin (Neurontin) 300 mg PO BID [facility] PRN Reason: Protocol Last Admin: 01/10/18 17:02 Dose: 300 mg Metronidazole (Flagyl) 500 mg in 100 mls @ 100 mls/hr IVPB Q8 [facility] PRN Reason: Protocol Last Admin: 01/10/18 13:21 Dose: 100 mls/hr Dextrose (Dextrose 5% In Water 1000 Ml) 1,000 mls @ 0 mls/hr IV .Q0M PRN; Protocol; Per Protocol PRN Reason: Hypoglycemia Protocol Sodium Chloride (Sodium Chloride 0.9%) 1,000 mls @ 100 mls/hr IV .Q10H [facility] Last Admin: 01/09/18 21:21 Dose: 100 mls/hr Aztreonam (Azactam 1 Gm) 100 mls @ 100 mls/hr IVPB Q8 [facility] PRN Reason: Protocol Last Admin: 01/10/18 13:21 Dose: 100 mls/hr Insulin Human Regular (Humulin R Low) 0 units SC Q6H [facility] PRN Reason: Protocol Last Admin: 01/10/18 16:29 Dose: Not Given Methadone HCl 60 mg/ Methadone (HCl 5 mg) 65 mg PO DAILY [facility] Last Admin: 01/10/18 09:34 Dose: 65 mg Metoprolol Tartrate (Lopressor) 25 mg PO BID [facility] Last Admin: 01/10/18 09:34 Dose: Not Given Morphine Sulfate (Morphine) 2 mg IVP Q6H PRN PRN Reason: Pain, severe (8-10) Last Admin: 01/10/18 13:30 Dose: 2 mg Ondansetron HCl (Zofran Inj) 4 mg IVP Q4H PRN PRN Reason: Nausea/Vomiting Last Admin: 01/09/18 21:22 Dose: 4 mg Tiotropium [place] (Spiriva) 18 mcg INH DAILY [facility] Last Admin: 01/10/18 09:34 Dose: 18 mcg - Labs Labs: 01/10/18 06:30 01/10/18 06:30 PT 16.5 SECONDS (9.4-12.5) H 01/09/18 17:20 INR 1.44 01/09/18 17:20 APTT 24.1 Seconds (25.1-36.5) L 01/09/18 17:20 - Constitutional Appears: No Acute Distress - Head Exam Head Exam: ATRAUMATIC, NORMOCEPHALIC - Eye Exam Eye Exam: EOMI - ENT Exam ENT Exam: Mucous Membranes Moist - Neck Exam Neck Exam: Full ROM - Respiratory Exam Respiratory Exam: Clear to Ausculation Bilateral, NORMAL BREATHING PATTERN. absent: Accessory Muscle Use, Rales, Rhonchi, Wheezes, Respiratory Distress, Stridor - Cardiovascular Exam Cardiovascular Exam: REGULAR RHYTHM, RRR, +S1, +S2. absent: Diastolic murmur, JVD, Murmur - GI/Abdominal Exam GI & Abdominal Exam: Soft, Tenderness, Normal Bowel Sounds. absent: Distended, Firm, Guarding, Rigid, Rebound - Extremities Exam Extremities Exam: Full ROM. absent: Calf Tenderness - Back Exam Back Exam: Full ROM, NORMAL INSPECTION. absent: CVA tenderness (L), CVA tenderness (R), muscle spasm - Neurological Exam Neurological Exam: Alert, Awake, Oriented x3 - Psychiatric Exam Psychiatric exam: Normal Affect - Skin Skin Exam: Dry, Normal Color, Warm Assessment and Plan - Assessment and Plan (Free Text) Assessment: Patient is a 62 yo female with PMH of COPD, DM, HTN, Methadone ( maintenance) neuropathy presents to ED for evaluation of abdominal pain. Plan: Colitis 01/09/2018 CT abdomen pelvis w/o contrast pending- shows left sided colonic thickening with minimal pericolonic fat compatible with colotis ID Consult: Dr. Radford- recommendations appreciated WBC- 12.6; Flagyl 500mg IVPB q8, Aztreonam 1gm IVPB q8; Morphine 2mg IVP q4h prn; Zofran 4mg IVP q4h prn; Colace 100mg po daily Stool Electrolytes pending- to calculate stool gap - determine etiology Blood cultures pending, stool cdiff pending, stool cultures pending COPD Spirivia 18mcg INH daily [place]vana 15mcg IH 0800 Albuterol 0.083% 1mg IH BID prn HTN Metoprolol 25mg po bid Neuropathy Gabapentin 300mg po bid DM ISS-low dose ACHS; Hypogylcemic protocol Prophylaxis DVT ppx: Lovenox 40mg sc daily GI ppx: Famotidine 40mg po hs Assessment/ plan, pt seen and examined with Dr Ramirez. Arnold Aguirre PGY-1 <Kev Ramirez - Last Filed: 01/11/18 07:49> Objective - Vital Signs/Intake and Output Vital Signs (last 24 hours): Temp Pulse Resp BP Pulse Ox 98.6 F 78 20 105/59 L 93 L 01/10/18 22:10 01/10/18 22:10 01/10/18 22:10 01/10/18 22:10 01/10/18 22:10 Intake and Output: 01/11/18 01/11/18 06:59 18:59 Intake Total 2560 Output Total 1 Balance 2559 - Medications Medications: Current Medications Albuterol Sulfate (Albuterol 0.083% Inhal [place] (2.5 Mg/3 Ml) Ud) 1 mg IH BIDRESP PRN PRN Reason: Wheezing Arformoterol Tartrate (Brovana) 15 mcg IH 0800 [facility] Last Admin: 01/11/18 07:23 Dose: Not Given Aspirin (Ecotrin) 81 mg PO DAILY [facility] Last Admin: 01/10/18 09:34 Dose: 81 mg Budesonide (Pulmicort Respules) 0.5 mg IH 0800 [facility] Last Admin: 01/11/18 07:23 Dose: Not Given Dextrose (Dextrose 50% Inj) 0 ml IV STAT PRN; Protocol PRN Reason: Hypoglycemia Protocol Enoxaparin Sodium (Lovenox) 40 mg SC DAILY [facility] PRN Reason: Protocol Last Admin: 01/10/18 09:33 Dose: 40 mg Famotidine (Pepcid) 40 mg PO HS [facility] Last Admin: 01/10/18 21:55 Dose: 40 mg Gabapentin (Neurontin) 300 mg PO BID [facility] PRN Reason: Protocol Last Admin: 01/10/18 17:02 Dose: 300 mg Metronidazole (Flagyl) 500 mg in 100 mls @ 100 mls/hr IVPB Q8 [facility] PRN Reason: Protocol Last Admin: 01/11/18 05:11 Dose: 100 mls/hr Dextrose (Dextrose 5% In Water 1000 Ml) 1,000 mls @ 0 mls/hr IV .Q0M PRN; Protocol; Per Protocol PRN Reason: Hypoglycemia Protocol Sodium Chloride (Sodium Chloride 0.9%) 1,000 mls @ 100 mls/hr IV .Q10H [facility] Last Admin: 01/10/18 21:57 Dose: 100 mls/hr Aztreonam (Azactam 1 Gm) 100 mls @ 100 mls/hr IVPB Q8 [facility] PRN Reason: Protocol Last Admin: 01/11/18 05:09 Dose: 100 mls/hr Insulin Human Regular (Humulin R Low) 0 units SC ACHS [facility] PRN Reason: Protocol Methadone HCl 60 mg/ Methadone (HCl 5 mg) 65 mg PO DAILY [facility] Last Admin: 01/10/18 09:34 Dose: 65 mg Metoprolol Tartrate (Lopressor) 25 mg PO BID [facility] Last Admin: 01/10/18 09:34 Dose: Not Given Morphine Sulfate (Morphine) 2 mg IVP Q6H PRN PRN Reason: Pain, severe (8-10) Last Admin: 01/11/18 01:56 Dose: 2 mg Ondansetron HCl (Zofran Inj) 4 mg IVP Q4H PRN PRN Reason: Nausea/Vomiting Last Admin: 01/09/18 21:22 Dose: 4 mg Tiotropium [place] (Spiriva) 18 mcg INH DAILY [facility] Last Admin: 01/10/18 09:34 Dose: 18 mcg Vancomycin HCl (Vancocin 25 Mg/Ml (Oral Use)) 125 mg PO QID [facility] PRN Reason: Protocol - Labs Labs: 01/11/18 06:00 01/11/18 06:00 PT 16.5 SECONDS (9.4-12.5) H 01/09/18 17:20 INR 1.44 01/09/18 17:20 APTT 24.1 Seconds (25.1-36.5) L 01/09/18 17:20 Attending/Attestation - Attestation I have personally seen and examined this patient.: Yes I have fully participated in the care of the patient.: Yes I have reviewed all pertinent clinical information, including history, physical exam and plan: Yes Notes (Text): 01/10/18 62 year old female with past medical history of hypertension, COPD, neuropathy and history of CDIF presented with complaint of left sided abdominal pain and diarrhea. CT abd/pelvis showed left sided colonic thickening consistent with colitis. Continue with iv antibiotics and analgesics. Continue with liquid diet as tolerated. GI evaluation was appreciated. Stool studies, including for CDIF, is ordered and pending. Kev Ramirez MD Hospitalist.
--- NOTE | 2018-01-10 18:38 | CP.PCM.CON ---
History of Present Illness - History of Present Illness History of Present Illness: Infectious Disease Consultatation: January 10, 2018 62 yo female with presentation of progressively worsening abdominal pain. She reports poor appetite and diarrhea of 5-6 episodes a day. Abdominal pain in the left side of the abdomen. Patient had a previous bout with C. Diff. She also states that she continues to feel weaker. The patient's past medical history includes Neuropathy, COPD, DM, HTN, and she is on Methadone maintenance. PMHx: Neuropathy, COPD, DM, HTN PSHx: none given Allergies: PCN, Iodine Social Hx: No EtOH or tobacco use Prior IVDA - Heroin. Active Medications Albuterol Sulfate (Albuterol 0.083% Inhal Jesenia (2.5 Mg/3 Ml) Ud) 1 mg IH BIDRESP PRN PRN Reason: Wheezing Arformoterol Tartrate (Brovana) 15 mcg IH 0800 [facility] Aspirin (Ecotrin) 81 mg PO DAILY NIMISHA Last Admin: 01/10/18 09:34 Dose: 81 mg Budesonide (Pulmicort Respules) 0.5 mg IH 0800 [facility] Last Admin: 01/10/18 07:13 Dose: 0.5 mg Dextrose (Dextrose 50% Inj) 0 ml IV STAT PRN; Protocol PRN Reason: Hypoglycemia Protocol Enoxaparin Sodium (Lovenox) 40 mg SC DAILY NIMISHA PRN Reason: Protocol Last Admin: 01/10/18 09:33 Dose: 40 mg Famotidine (Pepcid) 40 mg PO HS NIMISHA Last Admin: 01/09/18 23:37 Dose: 40 mg Gabapentin (Neurontin) 300 mg PO BID N[facility]ISHA PRN Reason: Protocol Last Admin: 01/10/18 17:02 Dose: 300 mg Metronidazole (Flagyl) 500 mg in 100 mls @ 100 mls/hr IVPB Q8 NIMISHA PRN Reason: Protocol Last Admin: 01/10/18 13:21 Dose: 100 mls/hr Dextrose (Dextrose 5% In Water 1000 Ml) 1,000 mls @ 0 mls/hr IV .Q0M PRN; Protocol; Per Protocol PRN Reason: Hypoglycemia Protocol Sodium Chloride (Sodium Chloride 0.9%) 1,000 mls @ 100 mls/hr IV .Q10H NIMIS[facility] Last Admin: 01/09/18 21:21 Dose: 100 mls/hr Aztreonam (Azactam 1 Gm) 100 mls @ 100 mls/hr IVPB Q8 NIMISHA PRN Reason: Protocol Last Admin: 01/10/18 13:21 Dose: 100 mls/hr Insulin Human Regular (Humulin R Low) 0 units SC Q6H NIMISHA PRN Reason: Protocol Last Admin: 01/10/18 16:29 Dose: Not Given Methadone HCl 60 mg/ Methadone (HCl 5 mg) 65 mg PO DAILY [facility] Last Admin: 01/10/18 09:34 Dose: 65 mg Metoprolol Tartrate (Lopressor) 25 mg PO BID [facility] Last Admin: 01/10/18 09:34 Dose: Not Given Morphine Sulfate (Morphine) 2 mg IVP Q6H PRN PRN Reason: Pain, severe (8-10) Last Admin: 01/10/18 13:30 Dose: 2 mg Ondansetron HCl (Zofran Inj) 4 mg IVP Q4H PRN PRN Reason: Nausea/Vomiting Last Admin: 01/09/18 21:22 Dose: 4 mg Tiotropium Coats (Spiriva) 18 mcg INH DAILY [facility] Last Admin: 01/10/18 09:34 Dose: 18 mcg Family Hx: CHF and DM in mother ROS: Abdominal pain, diarrhea, weakness No fevers, chills, chest pain, melena, hematuria, hematemesis, hematochezia, depression, anxiety, LOC, vision loss, hearing loss. Past Patient History - Infectious Disease Hx of Infectious Diseases: None - Tetanus Immunizations Tetanus Immunization: Unknown - Past Social History Smoking Status: Former Smoker - CARDIAC Hx Hypertension: Yes - PULMONARY Hx Chronic Obstructive Pulmonary Disease (COPD): Yes - NEUROLOGICAL Hx Neurological Disorder: Yes Hx Transient Ischemic Attacks (TIA): Yes Other/Comment: Neuropathy - HEENT Hx HEENT Problems: No - RENAL Hx Chronic Kidney Disease: No - ENDOCRINE/METABOLIC Hx Diabetes Mellitus Type 2: Yes - HEMATOLOGICAL/ONCOLOGICAL Hx Blood Disorders: Yes Hx Hepatitis C: Yes - INTEGUMENTARY Hx Dermatological Problems: No - MUSCULOSKELETAL/RHEUMATOLOGICAL Hx Musculoskeletal Disorders: No Hx Falls: No Hx Unsteady Gait: Yes - GASTROINTESTINAL Hx Gastrointestinal Disorders: No - GENITOURINARY/GYNECOLOGICAL Hx Genitourinary Disorders: No - PSYCHIATRIC Hx Emotional Abuse: No Hx Physical Abuse: No Hx Substance Use: No (denies) - SURGICAL HISTORY Hx Surgeries: No (Patient denies SX) Hx Cardiac Catheterization: Yes - ANESTHESIA Hx Anesthesia: No Hx Anesthesia Reactions: No Hx Malignant Hyperthermia: No Meds Allergies/Adverse Reactions: Allergies Allergy/AdvReac Type Severity Reaction Status Date / Time iodine Allergy ANAPHYLAXIS Verified 01/09/18 17:15 Penicillins Allergy ANAPHYLAXIS Verified 01/09/18 17:15 - Medications Medications: Current Medications Albuterol Sulfate (Albuterol 0.083% Inhal Jesenia (2.5 Mg/3 Ml) Ud) 1 mg IH BIDRESP PRN PRN Reason: Wheezing Arformoterol Tartrate (Brovana) 15 mcg IH 0800 [facility] Aspirin (Ecotrin) 81 mg PO DAILY N[facility]IS[facility] Last Admin: 01/10/18 09:34 Dose: 81 mg Budesonide (Pulmicort Respules) 0.5 mg IH 0800 [facility] Last Admin: 01/10/18 07:13 Dose: 0.5 mg Dextrose (Dextrose 50% Inj) 0 ml IV STAT PRN; Protocol PRN Reason: Hypoglycemia Protocol Enoxaparin Sodium (Lovenox) 40 mg SC DAILY NIMISHA PRN Reason: Protocol Last Admin: 01/10/18 09:33 Dose: 40 mg Famotidine (Pepcid) 40 mg PO HS N[facility] Last Admin: 01/09/18 23:37 Dose: 40 mg Gabapentin (Neurontin) 300 mg PO BID [facility] PRN Reason: Protocol Last Admin: 01/10/18 17:02 Dose: 300 mg Metronidazole (Flagyl) 500 mg in 100 mls @ 100 mls/hr IVPB Q8 N[facility]ISHA PRN Reason: Protocol Last Admin: 01/10/18 13:21 Dose: 100 mls/hr Dextrose (Dextrose 5% In Water 1000 Ml) 1,000 mls @ 0 mls/hr IV .Q0M PRN; Protocol; Per Protocol PRN Reason: Hypoglycemia Protocol Sodium Chloride (Sodium Chloride 0.9%) 1,000 mls @ 100 mls/hr IV .Q10H [facility] Last Admin: 01/09/18 21:21 Dose: 100 mls/hr Aztreonam (Azactam 1 Gm) 100 mls @ 100 mls/hr IVPB Q8 N[facility]ISHA PRN Reason: Protocol Last Admin: 01/10/18 13:21 Dose: 100 mls/hr Insulin Human Regular (Humulin R Low) 0 units SC Q6H [facility] PRN Reason: Protocol Last Admin: 01/10/18 16:29 Dose: Not Given Methadone HCl 60 mg/ Methadone (HCl 5 mg) 65 mg PO DAILY [facility] Last Admin: 01/10/18 09:34 Dose: 65 mg Metoprolol Tartrate (Lopressor) 25 mg PO BID [facility] Last Admin: 01/10/18 09:34 Dose: Not Given Morphine Sulfate (Morphine) 2 mg IVP Q6H PRN PRN Reason: Pain, severe (8-10) Last Admin: 01/10/18 13:30 Dose: 2 mg Ondansetron HCl (Zofran Inj) 4 mg IVP Q4H PRN PRN Reason: Nausea/Vomiting Last Admin: 01/09/18 21:22 Dose: 4 mg Tiotropium Coats (Spiriva) 18 mcg INH DAILY [facility] Last Admin: 01/10/18 09:34 Dose: 18 mcg Physical Exam - Constitutional Appears: Non-toxic, No Acute Distress, Chronically Ill - Head Exam Head Exam: ATRAUMATIC, NORMOCEPHALIC - Eye Exam Eye Exam: EOMI, PERRL Pupil Exam: NORMAL ACCOMODATION, PERRL - ENT Exam ENT Exam: Mucous Membranes Moist, Normal External Ear Exam, TM's Normal Bilaterally - Neck Exam Neck exam: Positive for: Full Rom, Normal Inspection - Respiratory Exam Respiratory Exam: Clear to Auscultation Bilateral, NORMAL BREATHING PATTERN. absent: Rales, Rhonchi, Wheezes - Cardiovascular Exam Cardiovascular Exam: REGULAR RHYTHM, RRR, +S1, +S2 - GI/Abdominal Exam GI & Abdominal Exam: Normal Bowel Sounds, Soft. absent: Distended, Tenderness - Extremities Exam Extremities exam: Positive for: full ROM, normal inspection - Neurological Exam Neurological exam: Alert, CN II-XII Intact, Oriented x3 - Psychiatric Exam Psychiatric exam: Normal Affect, Normal Mood - Skin Skin Exam: Intact, Normal Color Results - Vital Signs Recent Vital Signs: Last Vital Signs Temp 99 F 01/10/18 14:00 Pulse 72 01/10/18 16:49 Resp 20 01/10/18 14:00 BP 89/62 L 01/10/18 16:49 Pulse Ox 90 L 01/10/18 14:00 - Labs Result Diagrams: 01/10/18 06:30 01/10/18 06:30 Labs: Laboratory Results - last 24 hr 01/09/18 01/09/1801/10/18 20:04 21:14 02:57 WBC RBC Hgb Hct MCV MCH MCHC RDW Plt Count MPV Gran % Lymph % (Auto) [place] % (Auto) Eos % (Auto) Baso % (Auto) Gran # Lymph # (Auto) [place] # (Auto) Eos # (Auto) Baso # (Auto) Sodium Potassium Chloride Carbon Dioxide Anion Gap BUN Creatinine Est GFR ( Amer) Est GFR (Non-Af Amer) POC Glucose (mg/dL) 78 116 H Random Glucose Calcium Phosphorus Magnesium Total Bilirubin AST ALT Alkaline Phosphatase Total Protein Albumin Globulin Albumin/Globulin Ratio Urine Color Yellow Urine Appearance Clear Urine pH 6.0 Ur Specific [place] 1.025 Urine Protein 30 H Urine Glucose (UA) Negative Urine Ketones 40 H Urine Blood Trace-intact H Urine Nitrate Negative Urine Bilirubin Small H Urine Urobilinogen 0.2 Ur Leukocyte Esterase Negative Urine RBC 2 - 5 Urine WBC 0 - 2 Ur Epithelial Cells 1 - 3 Other Crystals None Urine Bacteria Mod 01/10/18 01/10/18 01/10/18 06:30 06:30 11:01 WBC 12.6 H RBC 4.63 Hgb 13.5 Hct 42.0 MCV 90.7 MCH 29.2 MCHC 32.1 RDW 14.7 H Plt Count 232 MPV 11.0 Gran % 73.1 H Lymph % (Auto) 16.4 L [place] % (Auto) 9.8 H Eos % (Auto) 0.5 L Baso % (Auto) 0.2 Gran # 9.18 H Lymph # (Auto) 2.1 [place] # (Auto) 1.2 H Eos # (Auto) 0.1 Baso # (Auto) 0.02 Sodium 141 Potassium 4.1 Chloride 101 Carbon Dioxide 29 Anion Gap 15 BUN 11 Creatinine 0.6 L Est GFR ( Amer) > 60 Est GFR (Non-Af Amer) > 60 POC Glucose (mg/dL) 151 H Random Glucose 127 H Calcium 8.6 Phosphorus 3.7 Magnesium 2.0 Total Bilirubin 0.5 AST 21 ALT 21 Alkaline Phosphatase 65 Total Protein 7.3 Albumin 3.5 Globulin 3.7 Albumin/Globulin Ratio 0.9 L Urine Color Urine Appearance Urine pH Ur Specific [place] Urine Protein Urine Glucose (UA) Urine Ketones Urine Blood Urine Nitrate Urine Bilirubin Urine Urobilinogen Ur Leukocyte Esterase Urine RBC Urine WBC Ur Epithelial Cells Other Crystals Urine Bacteria 08/27/18 16:12 WBC RBC Hgb Hct MCV MCH MCHC RDW Plt Count MPV Gran % Lymph % (Auto) [place] % (Auto) Eos % (Auto) Baso % (Auto) Gran # Lymph # (Auto) [place] # (Auto) Eos # (Auto) Baso # (Auto) Sodium Potassium Chloride Carbon Dioxide Anion Gap BUN Creatinine Est GFR ( Amer) Est GFR (Non-Af Amer) POC Glucose (mg/dL) 90 Random Glucose Calcium Phosphorus Magnesium Total Bilirubin AST ALT Alkaline Phosphatase Total Protein Albumin Globulin Albumin/Globulin Ratio Urine Color Urine Appearance Urine pH Ur Specific [place] Urine Protein Urine Glucose (UA) Urine Ketones Urine Blood Urine Nitrate Urine Bilirubin Urine Urobilinogen Ur Leukocyte Esterase Urine RBC Urine WBC Ur Epithelial Cells Other Crystals Urine Bacteria Assessment & Plan - Assessment and Plan (Free Text) Assessment: 62 yo female with worsening abdominal pain, weakness, and diarrhea. Patient stating PCN allergy. Started on Aztreonam and Flagyl for antibiotic treatment at this time. So far, blood cultures are negative. CT scan showing left sided colon thickening. Patient with a history of HCV and C. Diff. Long standing history of colitis. The patient had received Zepatir for HCV treatment in the past. Mild leukocytosis. Stool studies for C. Diff (current signs and symptoms make this diagnosis less likely). Rule out colitis. Supportive care. Thank you for allowing me to participate in the care of this patient, we will follow with you.
[2018-01-10] MEDS: Sodium Chloride 0.9% 1,000 ML IV SCH (21:57)
[2018-01-11] MEDS: Morphine 2 mg/ml ISec IVP PRN ×2 (01:56→20:17)
[2018-01-11] MEDS: Aztreonam 1 Gm in NS 100mL 100 ML IVPB SCH (05:09)
[2018-01-11] MEDS: metroNIDAZOLE IV 500 mg/100 ml 500 MG/100 ML BAG IVPB SCH ×3 (05:11→22:00)
--- NOTE | 2018-01-11 05:36 | CP.PCM.PN ---
Subjective - Date & Time of Evaluation Date of Evaluation: 01/11/18 Time of Evaluation: 05:30 - Subjective Subjective: Arnold Aguirre PGY-1, Medicine progress note for Dr Ramirez. Pt seen and examined at bedside this morning. Nurse reports no adverse events overnight. Pt reports abdominal pain which was partially alleviated by morphine. Pt reports a single episode of non-bloody diarrhea. Denies nausea, vomiting, SOB or chest pain. Objective - Vital Signs/Intake and Output Vital Signs (last 24 hours): Temp Pulse Resp BP Pulse Ox 98.6 F 78 20 105/59 L 93 L 01/10/18 22:10 01/10/18 22:10 01/10/18 22:10 01/10/18 22:10 01/10/18 22:10 Intake and Output: 01/10/18 01/11/18 18:59 06:59 Intake Total 480 480 Balance 480 480 - Medications Medications: Current Medications Albuterol Sulfate (Albuterol 0.083% Inhal Jesenia (2.5 Mg/3 Ml) Ud) 1 mg IH BIDRESP PRN PRN Reason: Wheezing Arformoterol Tartrate (Brovana) 15 mcg IH 0800 [facility] Aspirin (Ecotrin) 81 mg PO DAILY NIMISHA Last Admin: 01/10/18 09:34 Dose: 81 mg Budesonide (Pulmicort Respules) 0.5 mg IH 0800 [facility] Last Admin: 01/10/18 07:13 Dose: 0.5 mg Dextrose (Dextrose 50% Inj) 0 ml IV STAT PRN; Protocol PRN Reason: Hypoglycemia Protocol Enoxaparin Sodium (Lovenox) 40 mg SC DAILY NIMISHA PRN Reason: Protocol Last Admin: 01/10/18 09:33 Dose: 40 mg Famotidine (Pepcid) 40 mg PO HS N[facility]ISHA Last Admin: 01/10/18 21:55 Dose: 40 mg Gabapentin (Neurontin) 300 mg PO BID N[facility] PRN Reason: Protocol Last Admin: 01/10/18 17:02 Dose: 300 mg Metronidazole (Flagyl) 500 mg in 100 mls @ 100 mls/hr IVPB Q8 N[facility]ISHA PRN Reason: Protocol Last Admin: 01/11/18 05:11 Dose: 100 mls/hr Dextrose (Dextrose 5% In Water 1000 Ml) 1,000 mls @ 0 mls/hr IV .Q0M PRN; Protocol; Per Protocol PRN Reason: Hypoglycemia Protocol Sodium Chloride (Sodium Chloride 0.9%) 1,000 mls @ 100 mls/hr IV .Q10H [facility] Last Admin: 01/10/18 21:57 Dose: 100 mls/hr Aztreonam (Azactam 1 Gm) 100 mls @ 100 mls/hr IVPB Q8 NIMISHA PRN Reason: Protocol Last Admin: 01/11/18 05:09 Dose: 100 mls/hr Insulin Human Regular (Humulin R Low) 0 units SC ACHS NIMISHA PRN Reason: Protocol Methadone HCl 60 mg/ Methadone (HCl 5 mg) 65 mg PO DAILY [facility] Last Admin: 01/10/18 09:34 Dose: 65 mg Metoprolol Tartrate (Lopressor) 25 mg PO BID [facility] Last Admin: 01/10/18 09:34 Dose: Not Given Morphine Sulfate (Morphine) 2 mg IVP Q6H PRN PRN Reason: Pain, severe (8-10) Last Admin: 01/11/18 01:56 Dose: 2 mg Ondansetron HCl (Zofran Inj) 4 mg IVP Q4H PRN PRN Reason: Nausea/Vomiting Last Admin: 01/09/18 21:22 Dose: 4 mg Tiotropium [place] (Spiriva) 18 mcg INH DAILY [facility] Last Admin: 01/10/18 09:34 Dose: 18 mcg - Labs Labs: 01/10/18 06:30 01/10/18 06:30 PT 16.5 SECONDS (9.4-12.5) H 01/09/18 17:20 INR 1.44 01/09/18 17:20 APTT 24.1 Seconds (25.1-36.5) L 01/09/18 17:20 - Constitutional Appears: No Acute Distress - Head Exam Head Exam: ATRAUMATIC, NORMOCEPHALIC - Eye Exam Eye Exam: EOMI - ENT Exam ENT Exam: Mucous Membranes Moist - Neck Exam Neck Exam: Full ROM - Respiratory Exam Respiratory Exam: Clear to Ausculation Bilateral, NORMAL BREATHING PATTERN. absent: Accessory Muscle Use, Rales, Rhonchi, Wheezes, Respiratory Distress, Stridor - Cardiovascular Exam Cardiovascular Exam: REGULAR RHYTHM, RRR, +S1, +S2. absent: Diastolic murmur, Irregular Rhythm, JVD - GI/Abdominal Exam GI & Abdominal Exam: Soft, Tenderness, Normal Bowel Sounds. absent: Distended, Firm, Guarding, Rigid, Rebound Additional comments: some mild left sided tenderness - Extremities Exam Extremities Exam: Full ROM. absent: Calf Tenderness, Pedal Edema - Neurological Exam Neurological Exam: Alert, Awake - Psychiatric Exam Psychiatric exam: Normal Affect, Normal Mood - Skin Skin Exam: Dry, Normal Color, Warm Assessment and Plan - Assessment and Plan (Free Text) Assessment: Patient is a 62 yo female with PMH of COPD, DM, HTN, Methadone ( maintenance) neuropathy presents to ED for evaluation of abdominal pain found to have colitis. Plan: Colitis ID Consult: Dr. Lane pt does not have true PNC allergy, recommends continuing Flagyl, starting Cefepime, and discontinuing Aztreonam Leukocytosis has resolved, afebrile Continue: Morphine 2mg IVP q6h prn; Zofran HTN Stable; continue to monitor vitals Continue: Metoprolol COPD Continue: Spirivia, Brovana, Albuterol DM ISS-low dose ACHS; Hypogylcemic protocol Neuropathy Continue: Gabapentin Prophylaxis Continue: Lovenox, Famotidine Pt seen, examined, and discussed with Dr Ramirez. Arnold Aguirre PGY-1 Internal Medicine Resident
[2018-01-11 06:59] LABS: BASO # 0.01 K/mm3 (0.0-2.0); BASO % 0.1 % (0.0-3.0); EOS # 0.1 (0.0-0.7); EOS % 0.6 % (1.5-5.0); GRAN # 5.81 (1.4-6.5); GRAN % 68.2 % (50.0-68.0); LYMPH # 1.7 (1.2-3.4); LYMPH % 19.5 % (22.0-35.0); MEAN CELL VOLUME 90.2 fl (80.0-105.0); MEAN CORPUSCULAR HGB CONC 32.2 g/dl (31.0-37.0); MEAN PLATELET VOLUME 10.9 fl (7.0-11.0); MONO % 11.6 % (1.0-6.0); RBC 3.96 10^6/uL (3.5-6.1); RED CELL DISTRIBUTION WIDTH 14.5 % (11.5-14.5); WHITE BLOOD COUNT 8.5 10^3/ul (4.5-11.0)
[2018-01-11 07:15] LABS: ALB/GLOB RATIO 0.9 (1.1-1.8); ALBUMIN 2.9 g/dL (3.0-4.8); ALT/SGPT 22 U/L (7-56); AST/SGOT 20 U/L (14-36); BLOOD UREA NITROGEN 8 mg/dL (7-21); CALCIUM 7.9 mg/dL (8.4-10.5); GFR NON-AFRICAN AMERICAN > 60
[2018-01-11] MEDS: Budesonide 0.5 mg/2 ml Inhal Susp UD IH SCH (07:23)
[2018-01-11] MEDS: Arformoterol 15 mcg/2 ml Inh Sol IH SCH (07:23)
[2018-01-11 07:44] LABS: HEMOGLOBIN 11.5 g/dL (12.0-16.0)
--- NOTE | 2018-01-11 08:59 | CP.PCM.PN ---
<Naomy Joya - Last Filed: 01/11/18 09:01> Subjective - Date & Time of Evaluation Date of Evaluation: 01/11/18 Time of Evaluation: 07:00 - Subjective Subjective: GI Fellow PGY5 Progress Note Pt seen and evaluated this am, pt reports worsening LLQ pain overnight and this am. Also she reports diarrhea is all water with no stool. She had 2BM this am, no diarrhea overnight. She is tolerating her clear liquid diet with no N/V and reports having an appetite. No fevers or chills, no rectal bleeding. ROS: A 12pt ROS was negative except as above. Objective - Vital Signs/Intake and Output Vital Signs (last 24 hours): Temp Pulse Resp BP Pulse Ox 98.6 F 78 20 105/59 L 93 L 01/10/18 22:10 01/10/18 22:10 01/10/18 22:10 01/10/18 22:10 01/10/18 22:10 Intake and Output: 01/11/18 01/11/18 06:59 18:59 Intake Total 2560 Output Total 1 Balance 2559 - Medications Medications: Current Medications Albuterol Sulfate (Albuterol 0.083% Inhal Jesenia (2.5 Mg/3 Ml) Ud) 1 mg IH BIDRESP PRN PRN Reason: Wheezing Arformoterol Tartrate (Brovana) 15 mcg IH 0800 [facility] Last Admin: 01/11/18 07:23 Dose: Not Given Aspirin (Ecotrin) 81 mg PO DAILY [facility] Last Admin: 01/10/18 09:34 Dose: 81 mg Budesonide (Pulmicort Respules) 0.5 mg IH 0800 [facility] Last Admin: 01/11/18 07:23 Dose: Not Given Dextrose (Dextrose 50% Inj) 0 ml IV STAT PRN; Protocol PRN Reason: Hypoglycemia Protocol Enoxaparin Sodium (Lovenox) 40 mg SC DAILY [facility] PRN Reason: Protocol Last Admin: 01/10/18 09:33 Dose: 40 mg Famotidine (Pepcid) 40 mg PO HS [facility] Last Admin: 01/10/18 21:55 Dose: 40 mg Gabapentin (Neurontin) 300 mg PO BID [facility] PRN Reason: Protocol Last Admin: 01/10/18 17:02 Dose: 300 mg Metronidazole (Flagyl) 500 mg in 100 mls @ 100 mls/hr IVPB Q8 [facility] PRN Reason: Protocol Last Admin: 01/11/18 05:11 Dose: 100 mls/hr Dextrose (Dextrose 5% In Water 1000 Ml) 1,000 mls @ 0 mls/hr IV .Q0M PRN; Protocol; Per Protocol PRN Reason: Hypoglycemia Protocol Sodium Chloride (Sodium Chloride 0.9%) 1,000 mls @ 100 mls/hr IV .Q10H [facility] Last Admin: 01/10/18 21:57 Dose: 100 mls/hr Aztreonam (Azactam 1 Gm) 100 mls @ 100 mls/hr IVPB Q8 [facility] PRN Reason: Protocol Last Admin: 01/11/18 05:09 Dose: 100 mls/hr Insulin Human Regular (Humulin R Low) 0 units SC ACHS [facility] PRN Reason: Protocol Methadone HCl 60 mg/ Methadone (HCl 5 mg) 65 mg PO DAILY [facility] Last Admin: 01/10/18 09:34 Dose: 65 mg Metoprolol Tartrate (Lopressor) 25 mg PO BID [facility] Last Admin: 01/10/18 09:34 Dose: Not Given Morphine Sulfate (Morphine) 2 mg IVP Q6H PRN PRN Reason: Pain, severe (8-10) Last Admin: 01/11/18 01:56 Dose: 2 mg Ondansetron HCl (Zofran Inj) 4 mg IVP Q4H PRN PRN Reason: Nausea/Vomiting Last Admin: 01/09/18 21:22 Dose: 4 mg Tiotropium [place] (Spiriva) 18 mcg INH DAILY [facility] Last Admin: 01/10/18 09:34 Dose: 18 mcg Vancomycin HCl (Vancocin 25 Mg/Ml (Oral Use)) 125 mg PO QID [facility] PRN Reason: Protocol - Labs Labs: 01/11/18 06:00 01/11/18 06:00 PT 16.5 SECONDS (9.4-12.5) H 01/09/18 17:20 INR 1.44 01/09/18 17:20 APTT 24.1 Seconds (25.1-36.5) L 01/09/18 17:20 - Constitutional Appears: Non-toxic, No Acute Distress - Head Exam Head Exam: ATRAUMATIC, NORMAL INSPECTION, NORMOCEPHALIC - Eye Exam Eye Exam: EOMI, Normal appearance, PERRL Pupil Exam: PERRL - ENT Exam ENT Exam: Mucous Membranes Moist - Neck Exam Neck Exam: Full ROM, Normal Inspection - Respiratory Exam Respiratory Exam: Clear to Ausculation Bilateral, NORMAL BREATHING PATTERN - Cardiovascular Exam Cardiovascular Exam: REGULAR RHYTHM, RRR, +S1, +S2 - GI/Abdominal Exam GI & Abdominal Exam: Soft, Tenderness, Normal Bowel Sounds. absent: Distended, Guarding, Organomegaly - Rectal Exam Rectal Exam: Deferred - Extremities Exam Extremities Exam: Full ROM, Normal Inspection - Neurological Exam Neurological Exam: Alert, Awake, Oriented x3 - Psychiatric Exam Psychiatric exam: Normal Affect, Normal Mood - Skin Skin Exam: Dry, Intact, Normal Color, Warm Assessment and Plan - Assessment and Plan (Free Text) Assessment: This is a 62yF presenting with complaints of abdominal pain and diarrhea for 5days. 1. Abdominal pain 2. Diarrhea 3. Colitis 4. Hx of HCV 5. Hx of Cdiff Plan: -Continue supportive care with pain control and anti-emetics -IVF hydration -CT with left sided thickening noted -Pt with worseing abdominal pain and watery diarrhea, add po vancomycin to po flagyl for colitis and possible Cdiff -Stool studies ordered to r/o Cdiff, Ova and parasite, pancreatic elastase with hx of etoh abuse in past -Discussed with primary team about discontinuing Aztreonam if ID recommends -Full liquid diet -Pt treated with Zepatir for HCV, recommend close followup with urban and regional planner -Discussed with pt need for outpt followup and colonoscopy 6-8 weeks after resolution of current symptoms -Will continue to follow pt closely <Alban Burns - Last Filed: 01/11/18 09:29> Objective - Vital Signs/Intake and Output Vital Signs (last 24 hours): Temp Pulse Resp BP Pulse Ox 98.6 F 78 20 105/59 L 93 L 01/10/18 22:10 01/10/18 22:10 01/10/18 22:10 01/10/18 22:10 01/10/18 22:10 Intake and Output: 01/11/18 01/11/18 06:59 18:59 Intake Total 2560 Output Total 1 Balance 2559 - Medications Medications: Current Medications Albuterol Sulfate (Albuterol 0.083% Inhal Jesenia (2.5 Mg/3 Ml) Ud) 1 mg IH BIDRESP PRN PRN Reason: Wheezing Arformoterol Tartrate (Brovana) 15 mcg IH 0800 [facility] Last Admin: 01/11/18 07:23 Dose: Not Given Aspirin (Ecotrin) 81 mg PO DAILY [facility] Last Admin: 01/10/18 09:34 Dose: 81 mg Budesonide (Pulmicort Respules) 0.5 mg IH 0800 [facility] Last Admin: 01/11/18 07:23 Dose: Not Given Dextrose (Dextrose 50% Inj) 0 ml IV STAT PRN; Protocol PRN Reason: Hypoglycemia Protocol Enoxaparin Sodium (Lovenox) 40 mg SC DAILY [facility] PRN Reason: Protocol Last Admin: 01/10/18 09:33 Dose: 40 mg Famotidine (Pepcid) 40 mg PO HS [facility] Last Admin: 01/10/18 21:55 Dose: 40 mg Gabapentin (Neurontin) 300 mg PO BID [facility] PRN Reason: Protocol Last Admin: 01/10/18 17:02 Dose: 300 mg Metronidazole (Flagyl) 500 mg in 100 mls @ 100 mls/hr IVPB Q8 [facility] PRN Reason: Protocol Last Admin: 01/11/18 05:11 Dose: 100 mls/hr Dextrose (Dextrose 5% In Water 1000 Ml) 1,000 mls @ 0 mls/hr IV .Q0M PRN; Protocol; Per Protocol PRN Reason: Hypoglycemia Protocol Sodium Chloride (Sodium Chloride 0.9%) 1,000 mls @ 100 mls/hr IV .Q10H [facility] Last Admin: 01/10/18 21:57 Dose: 100 mls/hr Aztreonam (Azactam 1 Gm) 100 mls @ 100 mls/hr IVPB Q8 [facility] PRN Reason: Protocol Last Admin: 01/11/18 05:09 Dose: 100 mls/hr Insulin Human Regular (Humulin R Low) 0 units SC ACHS [facility] PRN Reason: Protocol Methadone HCl 60 mg/ Methadone (HCl 5 mg) 65 mg PO DAILY [facility] Last Admin: 01/10/18 09:34 Dose: 65 mg Metoprolol Tartrate (Lopressor) 25 mg PO BID [facility] Last Admin: 01/10/18 09:34 Dose: Not Given Morphine Sulfate (Morphine) 2 mg IVP Q6H PRN PRN Reason: Pain, severe (8-10) Last Admin: 01/11/18 01:56 Dose: 2 mg Ondansetron HCl (Zofran Inj) 4 mg IVP Q4H PRN PRN Reason: Nausea/Vomiting Last Admin: 01/09/18 21:22 Dose: 4 mg Tiotropium [place] (Spiriva) 18 mcg INH DAILY [facility] Last Admin: 01/10/18 09:34 Dose: 18 mcg Vancomycin HCl (Vancocin 25 Mg/Ml (Oral Use)) 125 mg PO QID [facility] PRN Reason: Protocol - Labs Labs: 01/11/18 06:00 01/11/18 06:00 PT 16.5 SECONDS (9.4-12.5) H 01/09/18 17:20 INR 1.44 01/09/18 17:20 APTT 24.1 Seconds (25.1-36.5) L 01/09/18 17:20 Attending/Attestation - Attestation I have personally seen and examined this patient.: Yes I have fully participated in the care of the patient.: Yes I have reviewed all pertinent clinical information, including history, physical exam and plan: Yes Notes (Text): 01/11/18 09:28 Patient seen and assessed with GI fellow this am. This is a 62 year old F presenting with complaints of abdominal pain and diarrhea for [address] revealing left sided colitis. Diarrhea watery non bloody and non mucusy. History of C idd colitis in 2015 with colonoscopy then showing no abnormalities. No antibiotics exposure in last 6 months. Has history of DM neuropathy and DM with two new medications started in last month as per patient. Stool infectious studies are still pending. Will start empiric vancomycin po qid with IV flagyl. Full liquid diet
[2018-01-11] MEDS: Insulin Reg-LOW-Coverage SC SCH ×2 (09:11→18:58)
[2018-01-11] MEDS: Enoxaparin 40 mg Syringe SC SCH (09:53)
[2018-01-11] MEDS: Vancomycin 25 MG/ML PO SCH ×4 (10:00→21:02)
--- NOTE | 2018-01-11 19:31 | CP.PCM.PN ---
Subjective - Date & Time of Evaluation Date of Evaluation: 01/11/18 Time of Evaluation: 19:24 - Subjective Subjective: Infectious Disease Progress Note: January 11, 2018 62 yo female with presentation of progressively worsening abdominal pain. She reports poor appetite and diarrhea of 5-6 episodes a day. Abdominal pain in the left side of the abdomen. Patient had a previous bout with C. Diff. She also states that she continues to feel weaker. The patient's past medical history includes Neuropathy, COPD, DM, HTN, and she is on Methadone maintenance. Patient states that her PCN "Allergy" is having C. Diff after finishing 10 day course of PCN. This is NOT an allergy to PCN. Given this information, the patient is NOT PCN allergic. The patient had PCN and PCN-like drugs in the past. Can consider use of Cefepime IV for antibiotic treatment of the patient instead of Aztreonam. Today she is stating that the abdominal pain is worse today. Objective - Vital Signs/Intake and Output Vital Signs (last 24 hours): Temp Pulse Resp BP Pulse Ox 98.3 F 66 20 87/60 L 94 L 01/11/18 14:00 01/11/18 14:00 01/11/18 14:00 01/11/18 14:00 01/11/18 14:00 Intake and Output: 01/11/18 01/12/18 18:59 06:59 Intake Total 600 Balance 600 - Medications Medications: Current Medications Albuterol Sulfate (Albuterol 0.083% Inhal Jesenia (2.5 Mg/3 Ml) Ud) 1 mg IH BIDRESP PRN PRN Reason: Wheezing Arformoterol Tartrate (Brovana) 15 mcg IH 0800 [facility] Last Admin: 01/11/18 07:23 Dose: Not Given Aspirin (Ecotrin) 81 mg PO DAILY [facility] Last Admin: 01/11/18 09:42 Dose: 81 mg Budesonide (Pulmicort Respules) 0.5 mg IH 0800 [facility] Last Admin: 01/11/18 07:23 Dose: Not Given Dextrose (Dextrose 50% Inj) 0 ml IV STAT PRN; Protocol PRN Reason: Hypoglycemia Protocol Enoxaparin Sodium (Lovenox) 40 mg SC DAILY [facility] PRN Reason: Protocol Last Admin: 01/11/18 09:53 Dose: 40 mg Famotidine (Pepcid) 40 mg PO HS [facility] Last Admin: 01/10/18 21:55 Dose: 40 mg Gabapentin (Neurontin) 300 mg PO BID [facility] PRN Reason: Protocol Last Admin: 01/11/18 09:43 Dose: 300 mg Metronidazole (Flagyl) 500 mg in 100 mls @ 100 mls/hr IVPB Q8 [facility] PRN Reason: Protocol Last Admin: 01/11/18 05:11 Dose: 100 mls/hr Dextrose (Dextrose 5% In Water 1000 Ml) 1,000 mls @ 0 mls/hr IV .Q0M PRN; Protocol; Per Protocol PRN Reason: Hypoglycemia Protocol Sodium Chloride (Sodium Chloride 0.9%) 1,000 mls @ 100 mls/hr IV .Q10H [facility] Last Admin: 01/10/18 21:57 Dose: 100 mls/hr Cefepime HCl (Maxipime 2gm) 2 gm in 100 mls @ 100 mls/hr IVPB Q12 [facility] PRN Reason: Protocol Stop: 01/16/18 22:01 Insulin Human Regular (Humulin R Low) 0 units SC ACHS [facility] PRN Reason: Protocol Last Admin: 01/11/18 09:11 Dose: Not Given Methadone HCl 60 mg/ Methadone (HCl 5 mg) 65 mg PO DAILY [facility] Last Admin: 01/11/18 09:42 Dose: 65 mg Metoprolol Tartrate (Lopressor) 25 mg PO BID [facility] Last Admin: 01/11/18 09:51 Dose: 25 mg Morphine Sulfate (Morphine) 2 mg IVP Q6H PRN PRN Reason: Pain, severe (8-10) Last Admin: 01/11/18 01:56 Dose: 2 mg Ondansetron HCl (Zofran Inj) 4 mg IVP Q4H PRN PRN Reason: Nausea/Vomiting Last Admin: 01/09/18 21:22 Dose: 4 mg Tiotropium [place] (Spiriva) 18 mcg INH DAILY [facility] Last Admin: 01/10/18 09:34 Dose: 18 mcg Vancomycin HCl (Vancocin 25 Mg/Ml (Oral Use)) 125 mg PO QID [facility] PRN Reason: Protocol - Labs Labs: 01/11/18 06:00 01/11/18 06:00 PT 16.5 SECONDS (9.4-12.5) H 01/09/18 17:20 INR 1.44 01/09/18 17:20 APTT 24.1 Seconds (25.1-36.5) L 01/09/18 17:20 - Constitutional Appears: Non-toxic, No Acute Distress - Head Exam Head Exam: ATRAUMATIC, NORMOCEPHALIC - Eye Exam Eye Exam: EOMI, PERRL Pupil Exam: NORMAL ACCOMODATION, PERRL - ENT Exam ENT Exam: Mucous Membranes Moist, Normal External Ear Exam, TM's Normal Bilaterally - Neck Exam Neck Exam: Full ROM, Normal Inspection - Respiratory Exam Respiratory Exam: Clear to Ausculation Bilateral, NORMAL BREATHING PATTERN. absent: Rales, Rhonchi, Wheezes - Cardiovascular Exam Cardiovascular Exam: REGULAR RHYTHM, RRR, +S1, +S2 - GI/Abdominal Exam GI & Abdominal Exam: Soft, Tenderness (Left sided abdominal pain and tenderness. ), Normal Bowel Sounds. absent: Distended, Organomegaly - Extremities Exam Extremities Exam: Full ROM, Normal Inspection - Neurological Exam Neurological Exam: Alert, Awake, CN II-XII Intact, Oriented x3 - Psychiatric Exam Psychiatric exam: Normal Affect, Normal Mood - Skin Skin Exam: Intact, Normal Color Assessment and Plan - Assessment and Plan (Free Text) Assessment: 62 yo female with worsening abdominal pain, weakness, and diarrhea. Patient stating PCN allergy. Started on Aztreonam and Flagyl for antibiotic treatment at this time. So far, blood cultures are negative. CT scan showing left sided colon thickening. Patient with a history of HCV and C. Diff. Long standing history of colitis. The patient had received Zepatir for HCV treatment in the past. Mild leukocytosis. Stool studies for C. Diff (current signs and symptoms make this diagnosis less likely). Rule out colitis. PCN "allergy" was development of C. Diff infection after a 10 day course of oral PCN. This is not an allergy. PCN allergy can be removed. Can stop Aztreonam and start Cefepime for antibiotic treatment at this time. Supportive care. Thank you for allowing me to participate in the care of this patient, we will follow with you.
[2018-01-11] MEDS: Cefepime IV 2 gm in NS 2 GM/100 ML BAG IVPB SCH (21:03)
--- NOTE | 2018-01-12 06:23 | CP.PCM.PN ---
Subjective - Date & Time of Evaluation Date of Evaluation: 01/12/18 Time of Evaluation: 06:15 - Subjective Subjective: Arnold Aguirre PGY1, Medicine Progress note for Dr Fernandez Pt seen and examined this morning. Pt reports 2-4 episodes of diarrhea over night. Pt also states left sided abdominal pain has intensified since yesterday. Objective - Vital Signs/Intake and Output Vital Signs (last 24 hours): Temp Pulse Resp BP Pulse Ox 98.3 F 65 20 112/72 94 L 01/11/18 21:33 01/11/18 21:33 01/11/18 21:33 01/11/18 21:33 01/11/18 21:33 Intake and Output: 01/11/18 01/12/18 18:59 06:59 Intake Total 600 Balance 600 - Medications Medications: Current Medications Albuterol Sulfate (Albuterol 0.083% Inhal Jesenia (2.5 Mg/3 Ml) Ud) 1 mg IH BIDRESP PRN PRN Reason: Wheezing Arformoterol Tartrate (Brovana) 15 mcg IH 0800 [facility] Last Admin: 01/11/18 07:23 Dose: Not Given Aspirin (Ecotrin) 81 mg PO DAILY [facility] Last Admin: 01/11/18 09:42 Dose: 81 mg Budesonide (Pulmicort Respules) 0.5 mg IH 0800 [facility] Last Admin: 01/11/18 07:23 Dose: Not Given Dextrose (Dextrose 50% Inj) 0 ml IV STAT PRN; Protocol PRN Reason: Hypoglycemia Protocol Enoxaparin Sodium (Lovenox) 40 mg SC DAILY [facility] PRN Reason: Protocol Last Admin: 01/11/18 09:53 Dose: 40 mg Famotidine (Pepcid) 40 mg PO HS [facility] Last Admin: 01/11/18 21:02 Dose: 40 mg Gabapentin (Neurontin) 300 mg PO BID [facility] PRN Reason: Protocol Last Admin: 01/11/18 19:22 Dose: 300 mg Metronidazole (Flagyl) 500 mg in 100 mls @ 100 mls/hr IVPB Q8 [facility] PRN Reason: Protocol Last Admin: 01/11/18 22:00 Dose: 100 mls/hr Dextrose (Dextrose 5% In Water 1000 Ml) 1,000 mls @ 0 mls/hr IV .Q0M PRN; Protocol; Per Protocol PRN Reason: Hypoglycemia Protocol Sodium Chloride (Sodium Chloride 0.9%) 1,000 mls @ 100 mls/hr IV .Q10H [facility] Last Admin: 01/10/18 21:57 Dose: 100 mls/hr Cefepime HCl (Maxipime 2gm) 2 gm in 100 mls @ 100 mls/hr IVPB Q12 [facility] PRN Reason: Protocol Stop: 01/16/18 22:01 Last Admin: 01/11/18 21:03 Dose: 100 mls/hr Insulin Human Regular (Humulin R Low) 0 units SC ACHS [facility] PRN Reason: Protocol Last Admin: 01/11/18 18:58 Dose: Not Given Methadone HCl 60 mg/ Methadone (HCl 5 mg) 65 mg PO DAILY [facility] Last Admin: 01/11/18 09:42 Dose: 65 mg Metoprolol Tartrate (Lopressor) 25 mg PO BID [facility] Last Admin: 01/11/18 19:21 Dose: 25 mg Morphine Sulfate (Morphine) 2 mg IVP Q6H PRN PRN Reason: Pain, severe (8-10) Last Admin: 01/11/18 20:17 Dose: 2 mg Ondansetron HCl (Zofran Inj) 4 mg IVP Q4H PRN PRN Reason: Nausea/Vomiting Last Admin: 01/11/18 20:17 Dose: 4 mg Tiotropium [place] (Spiriva) 18 mcg INH DAILY [facility] Last Admin: 01/10/18 09:34 Dose: 18 mcg Vancomycin HCl (Vancocin 25 Mg/Ml (Oral Use)) 125 mg PO QID [facility] PRN Reason: Protocol Last Admin: 01/11/18 21:02 Dose: Not Given - Labs Labs: 01/11/18 06:00 01/11/18 06:00 PT 16.5 SECONDS (9.4-12.5) H 01/09/18 17:20 INR 1.44 01/09/18 17:20 APTT 24.1 Seconds (25.1-36.5) L 01/09/18 17:20 - Constitutional Appears: No Acute Distress - Head Exam Head Exam: ATRAUMATIC, NORMOCEPHALIC - Eye Exam Eye Exam: EOMI - ENT Exam ENT Exam: Mucous Membranes Moist - Neck Exam Neck Exam: Full ROM - Respiratory Exam Respiratory Exam: Clear to Ausculation Bilateral. absent: Accessory Muscle Use , Rales, Rhonchi, Wheezes, Respiratory Distress - Cardiovascular Exam Cardiovascular Exam: REGULAR RHYTHM, RRR, +S1, +S2. absent: Diastolic murmur, Irregular Rhythm, JVD - GI/Abdominal Exam GI & Abdominal Exam: Soft, Tenderness, Normal Bowel Sounds. absent: Guarding, Rigid Additional comments: left sided abdominal pain to palpation - Extremities Exam Extremities Exam: Full ROM. absent: Calf Tenderness, Pedal Edema - Back Exam Back Exam: Full ROM - Neurological Exam Neurological Exam: Alert, Awake, Oriented x3 - Psychiatric Exam Psychiatric exam: Normal Affect, Normal Mood - Skin Skin Exam: Dry, Normal Color, Warm
[2018-01-12 07:01] LABS: BASO # 0.01 K/mm3 (0.0-2.0); BASO % 0.1 % (0.0-3.0); EOS # 0.1 (0.0-0.7); EOS % 1.2 % (1.5-5.0); GRAN # 4.77 (1.4-6.5); GRAN % 61.3 % (50.0-68.0); LYMPH # 1.8 (1.2-3.4); LYMPH % 22.5 % (22.0-35.0); MEAN CELL VOLUME 90.3 fl (80.0-105.0); MEAN CORPUSCULAR HEMOGLOBIN 28.9 pg (25.0-35.0); MEAN PLATELET VOLUME 10.9 fl (7.0-11.0); MONO # 1.2 (0.1-0.6); MONO % 14.9 % (1.0-6.0); RBC 3.81 10^6/uL (3.5-6.1); RED CELL DISTRIBUTION WIDTH 14.9 % (11.5-14.5); WHITE BLOOD COUNT 7.8 10^3/ul (4.5-11.0)
[2018-01-12] MEDS: metroNIDAZOLE IV 500 mg/100 ml 500 MG/100 ML BAG IVPB SCH (07:33)
[2018-01-12] MEDS: Arformoterol 15 mcg/2 ml Inh Sol IH SCH (07:34)
[2018-01-12] MEDS: Budesonide 0.5 mg/2 ml Inhal Susp UD IH SCH (07:35)
[2018-01-12 07:48] LABS: ALB/GLOB RATIO 0.9 (1.1-1.8); ALBUMIN 2.6 g/dL (3.0-4.8); ALT/SGPT 28 U/L (7-56); AST/SGOT 22 U/L (14-36); BLOOD UREA NITROGEN 6 mg/dL (7-21); CALCIUM 7.8 mg/dL (8.4-10.5); GFR NON-AFRICAN AMERICAN > 60
[2018-01-12 08:41] VITALS: BP 106/62; PULSE 68; RESP 18; TEMP 99; O2SAT 95
--- NOTE | 2018-01-12 09:38 | CP.PCM.PN ---
Subjective - Date & Time of Evaluation Date of Evaluation: 01/12/18 Time of Evaluation: 08:00 - Subjective Subjective: GI Fellow PGY5 Progress Note Pt seen and evaluated this am, pt reports worsening LLQ pain overnight and this am. Diarrhea is less frequency but still watery, had 1BM this am and 3 yesterday all day. She is tolerating her full liquid diet with no N/V and reports having an appetite. No fevers or chills, no rectal bleeding. ROS: A 12pt ROS was negative except as above. Objective - Vital Signs/Intake and Output Vital Signs (last 24 hours): Temp Pulse Resp BP Pulse Ox 99 F 68 18 106/62 95 01/12/18 06:00 01/12/18 06:00 01/12/18 06:00 01/12/18 06:00 01/12/18 06:00 - Medications Medications: Current Medications Albuterol Sulfate (Albuterol 0.083% Inhal Jesenia (2.5 Mg/3 Ml) Ud) 1 mg IH BIDRESP PRN PRN Reason: Wheezing Arformoterol Tartrate (Brovana) 15 mcg IH 0800 [facility] Last Admin: 01/12/18 07:34 Dose: 15 mcg Aspirin (Ecotrin) 81 mg PO DAILY [facility] Last Admin: 01/11/18 09:42 Dose: 81 mg Budesonide (Pulmicort Respules) 0.5 mg IH 0800 [facility] Last Admin: 01/12/18 07:35 Dose: 0.5 mg Dextrose (Dextrose 50% Inj) 0 ml IV STAT PRN; Protocol PRN Reason: Hypoglycemia Protocol Enoxaparin Sodium (Lovenox) 40 mg SC DAILY [facility] PRN Reason: Protocol Last Admin: 01/11/18 09:53 Dose: 40 mg Famotidine (Pepcid) 40 mg PO HS [facility] Last Admin: 01/11/18 21:02 Dose: 40 mg Gabapentin (Neurontin) 300 mg PO BID [facility] PRN Reason: Protocol Last Admin: 01/11/18 19:22 Dose: 300 mg Metronidazole (Flagyl) 500 mg in 100 mls @ 100 mls/hr IVPB Q8 [facility] PRN Reason: Protocol Last Admin: 01/12/18 07:33 Dose: 100 mls/hr Dextrose (Dextrose 5% In Water 1000 Ml) 1,000 mls @ 0 mls/hr IV .Q0M PRN; Protocol; Per Protocol PRN Reason: Hypoglycemia Protocol Sodium Chloride (Sodium Chloride 0.9%) 1,000 mls @ 100 mls/hr IV .Q10H [facility] Last Admin: 01/10/18 21:57 Dose: 100 mls/hr Cefepime HCl (Maxipime 2gm) 2 gm in 100 mls @ 100 mls/hr IVPB Q12 [facility] PRN Reason: Protocol Stop: 01/16/18 22:01 Last Admin: 01/11/18 21:03 Dose: 100 mls/hr Insulin Human Regular (Humulin R Low) 0 units SC ACHS [facility] PRN Reason: Protocol Last Admin: 01/11/18 18:58 Dose: Not Given Methadone HCl 60 mg/ Methadone (HCl 5 mg) 65 mg PO DAILY [facility] Last Admin: 01/11/18 09:42 Dose: 65 mg Metoprolol Tartrate (Lopressor) 25 mg PO BID [facility] Last Admin: 01/11/18 19:21 Dose: 25 mg Morphine Sulfate (Morphine) 2 mg IVP Q6H PRN PRN Reason: Pain, severe (8-10) Last Admin: 01/11/18 20:17 Dose: 2 mg Ondansetron HCl (Zofran Inj) 4 mg IVP Q4H PRN PRN Reason: Nausea/Vomiting Last Admin: 01/11/18 20:17 Dose: 4 mg Tiotropium [place] (Spiriva) 18 mcg INH DAILY [facility] Last Admin: 01/10/18 09:34 Dose: 18 mcg Vancomycin HCl (Vancocin 25 Mg/Ml (Oral Use)) 125 mg PO QID [facility] PRN Reason: Protocol Last Admin: 01/11/18 21:02 Dose: Not Given - Labs Labs: 01/12/18 06:30 01/12/18 06:30 PT 16.5 SECONDS (9.4-12.5) H 01/09/18 17:20 INR 1.44 01/09/18 17:20 APTT 24.1 Seconds (25.1-36.5) L 01/09/18 17:20 - Constitutional Appears: Non-toxic, No Acute Distress - Head Exam Head Exam: ATRAUMATIC, NORMAL INSPECTION, NORMOCEPHALIC - Eye Exam Eye Exam: EOMI, Normal appearance, PERRL Pupil Exam: PERRL - ENT Exam ENT Exam: Mucous Membranes Moist, Normal Exam - Neck Exam Neck Exam: Full ROM, Normal Inspection - Respiratory Exam Respiratory Exam: Clear to Ausculation Bilateral, NORMAL BREATHING PATTERN - Cardiovascular Exam Cardiovascular Exam: REGULAR RHYTHM, RRR, +S1, +S2 - GI/Abdominal Exam GI & Abdominal Exam: Soft, Tenderness, Normal Bowel Sounds. absent: Distended, Firm, Guarding, Rigid - Rectal Exam Rectal Exam: Deferred - Extremities Exam Extremities Exam: Full ROM, Normal Inspection - Neurological Exam Neurological Exam: Alert, Awake, Oriented x3 - Psychiatric Exam Psychiatric exam: Normal Affect, Normal Mood - Skin Skin Exam: Dry, Intact, Normal Color, Warm Assessment and Plan - Assessment and Plan (Free Text) Assessment: This is a 62yF presenting with complaints of abdominal pain and diarrhea for 5days. 1. Abdominal pain 2. Diarrhea 3. Colitis 4. Hx of HCV 5. Hx of Cdiff Plan: -Continue supportive care with pain control and anti-emetics -IVF hydration -CT with left sided thickening noted -Pt with worsening abdominal pain, if no improvement can consider CT imaging -Stool studies ordered to r/o Cdiff, Ova and parasite, pancreatic elastase with hx of etoh abuse in past -On po vanco, flagyl and Cefe -Full liquid diet -Recommend titrating off IV morphine and continue methadone -Pt treated with Zepatir for HCV, recommend close followup with shirt operator -Discussed with pt need for outpt followup and colonoscopy 6-8 weeks after resolution of current symptoms -Will continue to follow pt closely
[2018-01-12] MEDS: Insulin Reg-LOW-Coverage SC SCH ×2 (10:18→13:41)
[2018-01-12] MEDS: Vancomycin 25 MG/ML PO SCH ×2 (11:08→13:45)
[2018-01-12] MEDS: Cefepime IV 2 gm in NS 2 GM/100 ML BAG IVPB SCH (12:15)
[2018-01-12] MEDS ORDERED: Morphine 2 mg/ml ISec IM PRN (12:24)
[2018-01-12] MEDS: Enoxaparin 40 mg Syringe SC SCH (13:41)
[2018-01-12] MEDS: Sodium Chloride 0.9% 1,000 ML IV SCH (13:45)
[2018-01-12] MEDS: Tiotropium 18 mcg Cap For Inhalation INH SCH (13:45)
--- NOTE | 2018-01-12 15:01 | CP.PCM.PN ---
Subjective - Date & Time of Evaluation Date of Evaluation: 01/12/18 Time of Evaluation: 14:00 - Subjective Subjective: Infectious Disease Progress Note: January 12, 2018 62 yo female with presentation of progressively worsening abdominal pain. She reports poor appetite and diarrhea of 5-6 episodes a day. Abdominal pain in the left side of the abdomen. Patient had a previous bout with C. Diff. She also states that she continues to feel weaker. The patient's past medical history includes Neuropathy, COPD, DM, HTN, and she is on Methadone maintenance. Patient states that her PCN "Allergy" is having C. Diff after finishing 10 day course of PCN. This is NOT an allergy to PCN. Given this information, the patient is NOT PCN allergic. The patient had PCN and PCN-like drugs in the past. Use of Cefepime IV for antibiotic treatment of the patient instead of Aztreonam. C. Diff studies are negative. Objective - Vital Signs/Intake and Output Vital Signs (last 24 hours): Temp Pulse Resp BP Pulse Ox 99 F 68 18 106/62 95 01/12/18 06:00 01/12/18 06:00 01/12/18 06:00 01/12/18 06:00 01/12/18 06:00 Intake and Output: 01/12/18 01/12/18 06:59 18:59 Intake Total 480 Balance 480 - Medications Medications: Current Medications Albuterol Sulfate (Albuterol 0.083% Inhal Jesenia (2.5 Mg/3 Ml) Ud) 1 mg IH BIDRESP PRN PRN Reason: Wheezing Arformoterol Tartrate (Brovana) 15 mcg IH 0800 [facility] Last Admin: 01/12/18 07:34 Dose: 15 mcg Aspirin (Ecotrin) 81 mg PO DAILY NIMIS[facility] Last Admin: 01/12/18 11:10 Dose: 81 mg Budesonide (Pulmicort Respules) 0.5 mg IH 0800 [facility] Last Admin: 01/12/18 07:35 Dose: 0.5 mg Ciprofloxacin (Cipro) 500 mg PO Q12 N[facility] PRN Reason: Protocol Stop: 01/13/18 12:37 Dextrose (Dextrose 50% Inj) 0 ml IV STAT PRN; Protocol PRN Reason: Hypoglycemia Protocol Enoxaparin Sodium (Lovenox) 40 mg SC DAILY NIMISHA PRN Reason: Protocol Last Admin: 01/12/18 13:41 Dose: 40 mg Famotidine (Pepcid) 40 mg PO HS [facility] Last Admin: 01/11/18 21:02 Dose: 40 mg Gabapentin (Neurontin) 300 mg PO BID N[facility] PRN Reason: Protocol Last Admin: 01/12/18 11:07 Dose: 300 mg Metronidazole (Flagyl) 500 mg in 100 mls @ 100 mls/hr IVPB Q8 N[facility] PRN Reason: Protocol Last Admin: 01/12/18 07:33 Dose: 100 mls/hr Dextrose (Dextrose 5% In Water 1000 Ml) 1,000 mls @ 0 mls/hr IV .Q0M PRN; Protocol; Per Protocol PRN Reason: Hypoglycemia Protocol Sodium Chloride (Sodium Chloride 0.9%) 1,000 mls @ 100 mls/hr IV .Q10H [facility] Last Admin: 01/12/18 13:45 Dose: 100 mls/hr Insulin Human Regular (Humulin R Low) 0 units SC ACHS N[facility] PRN Reason: Protocol Last Admin: 01/12/18 13:41 Dose: Not Given Methadone HCl 60 mg/ Methadone (HCl 5 mg) 65 mg PO DAILY [facility] Last Admin: 01/12/18 11:06 Dose: 65 mg Metoprolol Tartrate (Lopressor) 25 mg PO BID [facility] Last Admin: 01/12/18 11:08 Dose: 25 mg Morphine Sulfate (Morphine) 1 mg IM Q6H PRN PRN Reason: Pain, severe (8-10) Ondansetron HCl (Zofran Inj) 4 mg IVP Q4H PRN PRN Reason: Nausea/Vomiting Last Admin: 01/11/18 20:17 Dose: 4 mg Tiotropium Shiloh (Spiriva) 18 mcg INH DAILY [facility] Last Admin: 01/12/18 13:45 Dose: 18 mcg Vancomycin HCl (Vancocin 25 Mg/Ml (Oral Use)) 125 mg PO QID [facility] PRN Reason: Protocol Last Admin: 01/12/18 13:45 Dose: 125 mg - Labs Labs: 01/12/18 06:30 01/12/18 06:30 PT 16.5 SECONDS (9.4-12.5) H 01/09/18 17:20 INR 1.44 01/09/18 17:20 APTT 24.1 Seconds (25.1-36.5) L 01/09/18 17:20 - Constitutional Appears: Non-toxic, No Acute Distress, Chronically Ill - Head Exam Head Exam: ATRAUMATIC, NORMOCEPHALIC - Eye Exam Eye Exam: EOMI, PERRL Pupil Exam: NORMAL ACCOMODATION, PERRL - ENT Exam ENT Exam: Mucous Membranes Moist, Normal External Ear Exam, TM's Normal Bilaterally - Neck Exam Neck Exam: Full ROM, Normal Inspection - Respiratory Exam Respiratory Exam: Clear to Ausculation Bilateral, NORMAL BREATHING PATTERN. absent: Rales, Rhonchi, Wheezes - Cardiovascular Exam Cardiovascular Exam: REGULAR RHYTHM, RRR, +S1, +S2 - GI/Abdominal Exam GI & Abdominal Exam: Soft, Normal Bowel Sounds. absent: Distended, Tenderness Additional comments: Left sided abdominal pain and tenderness - Extremities Exam Extremities Exam: Full ROM, Normal Inspection - Neurological Exam Neurological Exam: Alert, Awake, CN II-XII Intact, Oriented x3 - Psychiatric Exam Psychiatric exam: Normal Affect, Normal Mood - Skin Skin Exam: Intact, Normal Color Assessment and Plan - Assessment and Plan (Free Text) Assessment: 62 yo female with worsening abdominal pain, weakness, and diarrhea. Patient stating PCN allergy. Started on Aztreonam and Flagyl for antibiotic treatment at this time. So far, blood cultures are negative. CT scan showing left sided colon thickening. Patient with a history of HCV and C. Diff. Long standing history of colitis. The patient had received Zepatir for HCV treatment in the past. Mild leukocytosis. Stool studies for C. Diff (current signs and symptoms make this diagnosis less likely). Rule out colitis. PCN "allergy" was development of C. Diff infection after a 10 day course of oral PCN. This is not an allergy. PCN allergy can be removed. Continue on Cefepime for antibiotic treatment at this time. C. Diff studies are negative. Can stop PO Vancomycin. Supportive care. Thank you for allowing me to participate in the care of this patient, we will follow with you.
--- NOTE | 2018-01-12 16:21 | CP.PCM.DIS ---
Provider - Provider Date of Admission: 01/09/18 19:34 Attending physician: Kev Ramirez MD Primary care physician: Gaurav Tobias MD Consults: UMA, Tone Verduzco Time Spent in preparation of Discharge (in minutes): 35 Diagnosis - Discharge Diagnosis (1) Colitis Status: Acute Priority: High (2) Diarrhea Status: Acute Priority: Medium (3) Type II diabetes mellitus, uncontrolled Status: Acute Priority: Medium (4) Anxiety Status: Chronic Priority: Medium (5) Methadone dependence Status: Chronic Priority: Medium Hospital Course - Lab Results Lab Results: Micro Results 01/11/18 13:23 Stool C. difficile Antigen & Toxin A,B (M - Final 01/10/18 01:30 Stool Stool Culture - Final NO SALMONELLA, SHIGELLA OR CAMPYLOBACTER ISOLATED. Most Recent Lab Values WBC 7.8 10^3/ul (4.5-11.0) 01/12/18 06:30 RBC 3.81 10^6/uL (3.5-6.1) 01/12/18 06:30 Hgb 11.0 g/dL (12.0-16.0) L 01/12/18 06:30 Hct 34.4 % (36.0-48.0) L 01/12/18 06:30 MCV 90.3 fl (80.0-105.0) 01/12/18 06:30 MCH 28.9 pg (25.0-35.0) 01/12/18 06:30 MCHC 32.0 g/dl (31.0-37.0) 01/12/18 06:30 RDW 14.9 % (11.5-14.5) H 01/12/18 06:30 Plt Count 182 10^3/uL (120.0-450.0) 01/12/18 06:30 MPV 10.9 fl (7.0-11.0) 01/12/18 06:30 Gran % 61.3 % (50.0-68.0) 01/12/18 06:30 Lymph % (Auto) 22.5 % (22.0-35.0) 01/12/18 06:30 Gaines % (Auto) 14.9 % (1.0-6.0) H 01/12/18 06:30 Eos % (Auto) 1.2 % (1.5-5.0) L 01/12/18 06:30 Baso % (Auto) 0.1 % (0.0-3.0) 01/12/18 06:30 Gran # 4.77 (1.4-6.5) 01/12/18 06:30 Lymph # (Auto) 1.8 (1.2-3.4) 01/12/18 06:30 Gaines # (Auto) 1.2 (0.1-0.6) H 01/12/18 06:30 Eos # (Auto) 0.1 (0.0-0.7) 01/12/18 06:30 Baso # (Auto) 0.01 K/mm3 (0.0-2.0) 01/12/18 06:30 PT 16.5 SECONDS (9.4-12.5) H 01/09/18 17:20 INR 1.44 01/09/18 17:20 APTT 24.1 Seconds (25.1-36.5) L 01/09/18 17:20 pO2 27 mm/Hg (30-55) L 01/09/18 18:26 VBG pH 7.37 (7.32-7.43) 01/09/18 18:26 VBG pCO2 52.0 (40-60) 01/09/18 18:26 VBG HCO3 30.1 mmol/l (21-28) H 01/09/18 18:26 VBG Total CO2 31.7 mmol.L (22-28) H 01/09/18 18:26 VBG O2 Sat (Calc) 51.0 % (40-65) 01/09/18 18:26 VBG Base Excess 3.6 mmol/L (0.0-2.0) H 01/09/18 18:26 VBG Potassium 4.2 mmol/L (3.6-5.2) 01/09/18 18:26 Sodium 136.0 mmol/L (132-148) 01/09/18 18: Chloride 99.0 mmol/L (98-107) 01/09/18 18: Glucose 118 mg/dl (65-105) H 01/09/18 18:26 Lactate 1.1 mmol/L (0.7-2.1) 01/09/18 18:26 FiO2 21.0 % 01/09/18 18:26 Sodium 142 mmol/L (132-148) 01/12/18 06:30 Potassium 3.5 mmol/L (3.6-5.0) L 01/12/18 06:30 Chloride 106 mmol/L (98-107) 01/12/18 06:30 Carbon Dioxide 27 mmol/L (21-33) 01/12/18 06:30 Anion Gap 13 (10-20) 01/12/18 06:30 BUN 6 mg/dL (7-21) L 01/12/18 06:30 Creatinine 0.5 mg/dl (0.7-1.2) L 01/12/18 06:30 Est GFR ( Amer) > 60 01/12/18 06:30 Est GFR (Non-Af Amer) > 60 01/12/18 06:30 POC Glucose (mg/dL) 140 mg/dL (65-110) H 01/11/18 21:16 Random Glucose 98 mg/dL (70-110) 01/12/18 06:30 Calcium 7.8 mg/dL (8.4-10.5) L 01/12/18 06:30 Phosphorus 2.9 mg/dL (2.5-4.5) 01/12/18 06:30 Magnesium 1.8 mg/dL (1.7-2.2) 01/12/18 06:30 Total Bilirubin 0.2 mg/dL (0.2-1.3) 01/12/18 06:30 AST 22 U/L (14-36) 01/12/18 06:30 ALT 28 U/L (7-56) 01/12/18 06:30 Alkaline Phosphatase 48 U/L (38-126) 01/12/18 06:30 Lactate Dehydrogenase 508 U/L (333-699) 01/09/18 17:20 Total Creatine Kinase 111 U/L (35-230) 01/09/18 17:20 Troponin I < 0.01 ng/mL 01/09/18 17:20 Total Protein 5.7 g/dL (5.8-8.3) L 01/12/18 06:30 Albumin 2.6 g/dL (3.0-4.8) L 01/12/18 06:30 Globulin 3.1 gm/dL 01/12/18 06:30 Albumin/Globulin Ratio 0.9 (1.1-1.8) L 01/12/18 06:30 Amylase 67 U/L (35-125) 01/09/18 17:20 Lipase 25 U/L (23-300) 01/09/18 17:20 Venous Blood Potassium 4.2 mmol/L (3.6-5.2) 01/09/18 18:26 Urine Color Yellow (YELLOW) 01/09/18 20:04 Urine Appearance Clear (CLEAR) 01/09/18 20:04 Urine pH 6.0 (4.7-8.0) 01/09/18 20:04 Ur Specific [place] 1.025 (1.005-1.035) 01/09/18 20:04 Urine Protein 30 mg/dL (<30 mg/dL) H 01/09/18 20:04 Urine Glucose (UA) Negative mg/dL (NEGATIVE) 01/09/18 20:04 Urine Ketones 40 mg/dL (NEGATIVE) H 01/09/18 20:04 Urine Blood Trace-intact (NEGATIVE) H 01/09/18 20:04 Urine Nitrate Negative (NEGATIVE) 01/09/18 20:04 Urine Bilirubin Small (NEGATIVE) H 01/09/18 20:04 Urine Urobilinogen 0.2 E.U./dL (<1 E.U./dL) 01/09/18 20:04 Ur Leukocyte Esterase Negative Steven/uL (NEGATIVE) 01/09/18 20:04 Urine RBC 2 - 5 /hpf (0-2) 01/09/18 20:04 Urine WBC 0 - 2 /hpf (0-6) 01/09/18 20:04 Ur Epithelial Cells 1 - 3 /hpf (0-5) 01/09/18 20:04 Other Crystals None /hpf 01/09/18 20:04 Urine Bacteria Mod (NEG) 01/09/18 20:04 - Hospital Course Hospital Course: Patient is a 62 yo female with PMH of COPD, DM, HTN, undergoing Methadone treatments, and neuropathy who presented to the ED for evaluation of abdominal pain. Patient's abdominal pain began on 01/05 and progressively became worse until she had to come to hospital. Patient reports no appetite secondary to abdominal pain and multiple episodes of diarrhea (5-6/day) described as light brown, loose, no melena, or blood noted at that time. Patient also reported weakness and stated it is because she is unable to eat. Pt stated that she had 8/10 left sided abdominal pain which was worsened by eating. Patient had 1 prior episode of similar symptoms in 2013 after a dentist prescribed her antibiotics. Pt was diagnosed and treated for colitis while in the hospital. Patient has been treated for C. diff colitis in the past. Patient underwent colonoscopy in (2013 or 2014) with normal results. Pt was treated with PNC in past and developed c diff, she contributed this to being allergic to PNC. Pt was treated with emperic Metronidazole and Aztreonam while waiting for stool cultures for C diff. ID determined this to not be a true allergy and felt it was safe to discontinue Aztreonam and replace it with Cefepime. Vancomycin was later added along with morphine. 01/12 pt test results for C. diff came back as negative, will discharge patient on PO cipro 500 BID and Flagyl 500 TID for 7 days. - Date & Time of H&P Date of H&P: 01/12/18 Time of H&P: 04:30 Discharge Exam - Head Exam Head Exam: ATRAUMATIC, NORMOCEPHALIC - Eye Exam Eye Exam: EOMI - ENT Exam ENT Exam: Mucous Membranes Moist - Respiratory Exam Respiratory Exam: NORMAL BREATHING PATTERN. absent: Accessory Muscle Use, Rales , Rhonchi, Wheezes - Cardiovascular Exam Cardiovascular Exam: REGULAR RHYTHM, RRR, +S1, +S2. absent: Diastolic murmur, JVD, Systolic Murmur - GI/Abdominal Exam GI & Abdominal Exam: Normal Bowel Sounds, Tenderness. absent: Distended, Firm, Guarding, Hernia, Rebound, Rigid Additional comments: left sided abdominal tenderness to palpation - Extremities Exam Extremities exam: full ROM - Neurological Exam Neurological exam: Alert, Oriented x3 - Psychiatric Exam Psychiatric exam: Normal Affect, Normal Mood - Skin Skin Exam: Dry, Normal Color, Warm Discharge Plan - Discharge Medications Prescriptions: Ciprofloxacin [Cipro] 500 mg PO BID #10 tab Metronidazole 500 mg PO Q8 #15 tablet Pantoprazole Sodium [Protonix] 40 mg PO DAILY #7 ect - Follow Up Plan Condition: STABLE Disposition: HOME/ ROUTINE Additional Instructions: 1.Please follow up with your PMD within 3-5 days regarding this admission. 2.Please follow up with your preferred [employer] suggesed by your PMD or [facility] of Gastroenterology for colonoscopy 6-8 weeks after resolution of current symptoms. 3.Your medications will be provided to you prior to being discharged, please take accordingly. 4.If symptoms worsen or return please go to your nearest emergency department. Referrals: Gaurav Tobias MD [Primary Care Provider] -
[2018-01-14 21:46] LABS: STOOL SODIUM 35.5 mEq/L
== END 2018-01-12 18:54 | disposition home or self-care (01) | DRG 179 ==
LOC: ED 17:03 → ERH 19:34 → 5RSO 22:58 → 5RNO 01-12 13:58
PROVIDERS: ADMIT Internal Medicine; ATTEND Internal Medicine
DX: K51.50 Left sided colitis without complications (principal); E11.40 Type 2 diabetes mellitus with diabetic neuropathy, unspecified; F11.20 Opioid dependence, uncomplicated; E11.65 Type 2 diabetes mellitus with hyperglycemia; I10 Essential (primary) hypertension; K80.20 Calculus of gallbladder without cholecystitis without obstruction; J44.9 Chronic obstructive pulmonary disease, unspecified; F41.9 Anxiety disorder, unspecified; I25.2 Old myocardial infarction; Z88.0 Allergy status to penicillin; Z86.73 Personal history of transient ischemic attack (TIA), and cerebral infarction without residual deficits; Z79.84 Long term (current) use of oral hypoglycemic drugs; Z87.891 Personal history of nicotine dependence; Z86.19 Personal history of other infectious and parasitic diseases; Z83.3 Family history of diabetes mellitus; Z82.49 Family history of ischemic heart disease and other diseases of the circulatory system